=== PATIENT | female | born 1975 | race Caucasian/White ===

== ENCOUNTER 2016-12-16 22:48 | Inpatient (IN) | payer OTHER ==
[~2016-12-16] VITALS: Ht 152.4 cm; Wt 70.0 kg
[~2016-12-16 22:48] MED LIST: Erythromycin Base PO; HYDR25TA PO; METO5TAB PO; ONDA4TAB7 PO; PANT40TA3 PO; ZOLP5TAB PO
[2016-12-16 23:30] LABS: BASO % 0 % (0-3); EOS % 0 % (0-3); HEMATOCRIT 40.8 % (36.0-47.0); HEMOGLOBIN 14.3 g/dL (12.0-15.5); LYMPH % 9 % (24-48); MEAN CORPUSCULAR HEMOGLOBIN 31 pg (25-35); MEAN CORPUSCULAR HGB CONC 35 g/dL (31-37); MEAN CORPUSCULAR VOLUME 87 fL (79-100); MONO % 6 % (0-9); NEUT % 85 % (31-73); PLATELET COUNT 241 x10^3/uL (140-400); RED BLOOD COUNT 4.68 x10^6/uL (3.50-5.40); RED CELL DISTRIBUTION WIDTH 13.3 % (11.5-14.5); WHITE BLOOD COUNT 10.8 x10^3/uL (4.0-11.0)
--- NOTE | 2016-12-16 23:33 | PHYS DOC ---
Past Medical History Past Medical History: DVT, Fibromyalgia, GERD, Migraines, Ovarian Cyst, Pneumonia, Other Additional Past Medical Histor: PITUITARY ADNOMA, POST CARDIOMYOPATHY, GASTROPARESIS Past Surgical History: Appendectomy, Cholecystectomy, Tonsillectomy, Other Additional Past Surgical Histo: ADNOIDECTOMY, Alcohol Use: Rarely Drug Use: None Adult General Chief Complaint Chief Complaint: ABDOMINAL PAIN HPI HPI Patient is a 41 year old nail presents emergency department stating that she has a history of gastroparesis. She states she was diagnosed with this back in 2013. Patient presents today stating that she's been having some upper abdominal pain and discomfort for the last 6 weeks in which she's been seen her primary care physician for. Patient states she takes Zofran at home and has been taking 8 mg of Zofran every 4 hours to help with her nausea vomiting. Patient states that she has been vomiting for the last 7 days. She states she's been unable to keep anything down. Patient states that she has vomiting up bile with no blood noted. She states she originally started with some diarrhea although that has subsided now. She is complaining of upper abdominal pain and generalized abdominal pain as well. She takes Protonix at home and states that she believes that she threw the Protonix up today. She denies any fever but does state that she's had some chills at home. Patient states that she has noticed that her abdominal pain and discomfort with nausea and vomiting becomes worse when she is under a lot of stress. She states that her son has recently been diagnosed with bipolar and she believes that this is part of the cause. She also believes that she has a autoimmune deficiency which causes her to have the discomfort. 0243: This is a 41-year-old female with a history significant for an appendectomy and a cholecystectomy and gastroparesis who presents to the ER today secondary to abdominal pain nausea and vomiting. Patient has tenderness in the midepigastric area. Patient has diminished bowel sounds. Patient has no rebound or guarding. Patient present with any signs or symptoms of be consistent with an acute surgical abdomen at this time. Patient had a CT scan of the abdomen and pelvis with by mouth and IV contrast which revealed a small bowel obstruction at the proximal. Patient will need to be admitted to the hospital for further evaluation. We will consult surgery. NG tube is being placed to decompress the stomach and to assist with pain. Clinically and hemodynamically stable for admission at this time. Plan was discussed with the patient and family and they're in complete agreement with the plan to admit the patient for further workup in the hospital. Review of Systems Review of Systems Constitutional: Denies fever or chills [] Eyes: Denies change in visual acuity, redness, or eye pain [] HENT: Denies nasal congestion or sore throat [] Respiratory: Denies cough or shortness of breath [] Cardiovascular: No additional information not addressed in HPI [] GI: abdominal pain, nausea, vomiting, denies bloody stools or diarrhea [] : Denies dysuria or hematuria [] Musculoskeletal: Denies back pain or joint pain [] Integument: Denies rash or skin lesions [] Neurologic: Denies headache, focal weakness or sensory changes [] Endocrine: Denies polyuria or polydipsia [] Current Medications Current Medications Current Medications Medications (Trade) Dose Ordered Sig/Olya Start Time Stop Time Status Last Admin Dose Admin Fentanyl Citrate (Fentanyl 2ml Vial) 50 mcg PRN Q2HR PRN 12/17/16 02:15 12/18/16 02:14 UNV Hydromorphone HCl (Dilaudid) 1 mg 1X ONCE 12/17/16 02:15 12/17/16 02:16 UNV 12/17/16 02:33 1 MG Info (Do NOT chart on this entry -- for MONITORING) 1 each PRN DAILY PRN 12/17/16 00:45 12/19/16 00:44 Iohexol (Omnipaque 240 Mg/ml) 30 ml 1X ONCE 12/17/16 00:45 12/17/16 00:46 DC 12/17/16 01:34 30 ML Iohexol (Omnipaque 300 Mg/ml) 75 ml 1X ONCE 12/17/16 00:45 12/17/16 00:46 DC 12/17/16 01:34 75 ML Lidocaine HCl (Glydo (Lidocaine) Jelly) 6 celio STK-MED ONCE 12/17/16 02:22 12/17/16 02:23 DC Lidocaine HCl (Viscous Lidocaine) 15 ml 1X ONCE 12/17/16 02:15 12/17/16 02:16 UNV Ondansetron HCl (Zofran) 4 mg 1X ONCE 12/17/16 02:15 12/17/16 02:16 UNV 12/17/16 02:30 4 MG Pantoprazole Sodium (Protonix Vial) 40 mg 1X ONCE 12/16/16 23:45 12/16/16 23:46 DC 12/16/16 23:45 40 MG Promethazine HCl (Phenergan Im) 25 mg 1X ONCE 12/16/16 23:45 12/16/16 23:46 DC 12/16/16 23:56 25 MG Sodium Chloride 1,000 ml @ 125 mls/hr Q8H 12/17/16 02:12 12/18/16 02:11 UNV 12/17/16 02:27 125 MLS/HR Allergies Allergies Allergies Coded Allergies Type Severity Reaction Last Updated Verified morphine Adverse Reaction Intermediate SEVERE ITCHING 02/12/16 Yes Physical Exam Physical Exam Constitutional: Well developed, well nourished, no acute distress, non-toxic appearance. [] HENT: Normocephalic, atraumatic, bilateral external ears normal, oropharynx moist, no oral exudates, nose normal. [] Eyes: PERRLA, EOMI, conjunctiva normal, no discharge. [] Neck: Normal range of motion, no tenderness, supple, no stridor. [] Cardiovascular:Heart rate regular rhythm, no murmur [] Lungs & Thorax: Bilateral breath sounds clear to auscultation [] Abdomen: Bowel sounds hypoactive, soft, upper abdominal tenderness, no masses, no pulsatile masses. [] Skin: Warm, dry, no erythema, no rash. [] Back: No tenderness Extremities: No tenderness, no cyanosis, no clubbing, ROM intact, no edema. [] Neurologic: Alert and oriented X 3, normal motor function, normal sensory function, no focal deficits noted. [] Psychologic: Affect normal, judgement normal, mood normal. [] Current Patient Data Vital Signs Vital Signs Date Time Temp Pulse Resp B/P (MAP) Pulse Ox O2 Delivery O2 Flow Rate FiO2 12/17/16 02:33 16 97 12/16/16 23:21 98.0 79 111/69 (83) Room Air 98.0 Lab Values Laboratory Tests Test 12/16/16 22:40 12/16/16 23:13 12/16/16 23:19 POC Urine HCG, Qualitative Hcg negative (Negative) Urine Collection Type Unknown Urine Color Yellow Urine Clarity Clear Urine pH 6.0 Urine Specific [place] >=1.030 Urine Protein Negative mg/dL (NEG-TRACE) Urine Glucose (UA) Negative mg/dL (NEG) Urine Ketones (Stick) Negative mg/dL (NEG) Urine Blood Large (NEG) Urine Nitrite Negative (NEG) Urine Bilirubin Negative (NEG) Urine Urobilinogen Dipstick 0.2 mg/dL (0.2 mg/dL) Urine Leukocyte Esterase Small (NEG) Urine RBC 11-20 /HPF (0-2) Urine WBC 5-10 /HPF (0-4) Urine Squamous Epithelial Cells Mod /LPF Urine Amorphous Sediment Present /HPF Urine Bacteria Few /HPF (0-FEW) Urine Mucus Mod /LPF Urine Yeast Present /HPF White Blood Count 10.8 x10^3/uL (4.0-11.0) Red Blood Count 4.68 x10^6/uL (3.50-5.40) Hemoglobin 14.3 g/dL (12.0-15.5) Hematocrit 40.8 % (36.0-47.0) Mean Corpuscular Volume 87 fL (79-100) Mean Corpuscular Hemoglobin 31 pg (25-35) Mean Corpuscular Hemoglobin Concent 35 g/dL (31-37) Red Cell Distribution Width 13.3 % (11.5-14.5) Platelet Count 241 x10^3/uL (140-400) Neutrophils (%) (Auto) 85 % (31-73) H Lymphocytes (%) (Auto) 9 % (24-48) L Monocytes (%) (Auto) 6 % (0-9) Eosinophils (%) (Auto) 0 % (0-3) Basophils (%) (Auto) 0 % (0-3) Neutrophils # (Auto) 9.2 x10^3uL (1.8-7.7) H Lymphocytes # (Auto) 1.0 x10^3/uL (1.0-4.8) Monocytes # (Auto) 0.6 x10^3/uL (0.0-1.1) Eosinophils # (Auto) 0.0 x10^3/uL (0.0-0.7) Basophils # (Auto) 0.0 x10^3/uL (0.0-0.2) Segmented Neutrophils % 80 % (35-66) H Lymphocytes % 14 % (24-48) L Monocytes % 6 % (0-10) Platelet Estimate Adequate (ADEQUATE) Sodium Level 139 mmol/L (136-145) Potassium Level 4.0 mmol/L (3.5-5.1) Chloride Level 103 mmol/L (98-107) Carbon Dioxide Level 26 mmol/L (21-32) Anion Gap 10 (6-14) Blood Urea Nitrogen 17 mg/dL (7-20) Creatinine 0.8 mg/dL (0.6-1.0) Estimated GFR (Cockcroft-Gault) 78.7 BUN/Creatinine Ratio 21 (6-20) H Glucose Level 129 mg/dL (70-99) H Calcium Level 8.6 mg/dL (8.5-10.1) Total Bilirubin 0.3 mg/dL (0.2-1.0) Aspartate Amino Transferase (AST) 28 U/L (15-37) Alanine Aminotransferase (ALT) 38 U/L (14-59) Alkaline Phosphatase 52 U/L (46-116) Total Protein 7.5 g/dL (6.4-8.2) Albumin 4.0 g/dL (3.4-5.0) Albumin/Globulin Ratio 1.1 (1.0-1.7) Amylase Level 30 U/L (25-115) Lipase 235 U/L (73-393) Laboratory Tests 12/16/16 23:19 Laboratory Tests 12/16/16 23:19 EKG EKG [] Radiology/Procedures Radiology/Procedures [] Course & Med Decision Making Course & Med Decision Making Pertinent Labs and Imaging studies reviewed. (See chart for details) Patient's urine is positive for large amount of blood. Patient does state that she is currently on her menstrual cycle which is day 3. 0057 Patient continues to have pain and discomfort with Fentanyl ordered as needed. Patient continues to have nausea feeling, zofran ordered. [address] Naqvi with CT scan pending. Labs appear to be normal. [] Dragon Disclaimer Dragon Disclaimer This electronic medical record was generated, in whole or in part, using a voice recognition dictation system. Departure Departure Impression: Primary Impression: Gastroparesis Additional Impression: Small bowel obstruction Disposition: 09 ADMITTED INPATIENT Admitting Physician: Other (reusch) Condition: GUARDED Referrals: CHE ZALDIVAR MD (PCP) Problem Qualifiers YONG GENTILE APRN December 16, 2016 23:33 NORMAN NAQVI MD December 17, 2016 02:46
[2016-12-16 23:38] LABS: CALCIUM 8.6 mg/dL (8.5-10.1); CREATININE 0.8 mg/dL (0.6-1.0); GFR 78.7
[2016-12-16 23:39] LABS: BILIRUBIN,URINE NEGATIVE (NEG); GLUCOSE,URINE NEGATIVE (NEG); NITRITE,URINE NEGATIVE (NEG); PROTEIN,URINE NEGATIVE (NEG-TRACE); UROBILINOGEN,URINE 0.2 mg/dL (0.2 mg/dL)
[2016-12-16 23:44] LABS: BACTERIA,URINE FEW /HPF (0-FEW); SQUAMOUS EPITHELIAL CELL,UR MOD /LPF
[2016-12-16 23:44] LABS: ALBUMIN/GLOBULIN RATIO 1.1 (1.0-1.7); AMYLASE 30 U/L (25-115); TOTAL BILIRUBIN 0.3 mg/dL (0.2-1.0); TOTAL PROTEIN 7.5 g/dL (6.4-8.2)
[2016-12-16 23:45] LABS: YEAST,URINE PRESENT /HPF
[2016-12-16] MEDS ORDERED: IV NORMAL SALINE 1000ML BAG 1,000 ML IV ONE (23:45)
[2016-12-16] MEDS ORDERED: PANTOPRAZOLE IV PUSH 40 MG VIAL. IVP ONE (23:45)
[2016-12-16] MEDS ORDERED: PROMETHAZINE IM 25 MG/ML VIAL IM ONE (23:45)
[2016-12-16] MEDS: fentaNYL PF VIAL 100 MCG/2 ML VIAL IV PRN (23:59)
[2016-12-17] LABS: PLT ESTIMATE ADEQUATE (ADEQUATE)
[2016-12-17] MEDS ORDERED: CONTRAST GIVEN MC PRN (00:45)
[2016-12-17] MEDS ORDERED: IOHEXOL 300 MG/ML 75 ML VIAL IV ONE (00:45)
[2016-12-17] MEDS ORDERED: IOHEXOL 240 MG/ML 50ML VIAL. PO ONE (00:45)
[2016-12-17] MEDS: fentaNYL PF VIAL 100 MCG/2 ML VIAL IV PRN ×6 (00:53→22:00)
[2016-12-17] MEDS ORDERED: ONDANSETRON PF 4 MG/2 ML VIAL. IV ONE ×2 (01:00→02:15)
--- NOTE | 2016-12-17 02:01 | RAD ---
PROCEDURE CT abdomen and pelvis with contrast. HISTORY Abdominal pain. TECHNIQUE Helical CT imaging of the abdomen and pelvis performed after oral contrast and 75 cc Omnipaque 300 IV contrast. PQRS: One or more the following individualized dose reduction techniques were utilized for the study: 1. Automated exposure control. 2. Adjustment of the mA and/or kV according to patient size. 3. Use of iterative reconstruction technique. COMPARISON CT abdomen pelvis without contrast, May 12, 2015. FINDINGS Mild bilateral dependent atelectasis. Cardiac size normal. Cholecystectomy. Mild splenomegaly, craniocaudal dimension 14 centimeters. The liver, pancreas, right adrenal gland, and abdominal aortic caliber are normal. Stable nodularity of the left adrenal gland. There is no hydronephrosis. Kidneys enhance symmetrically. The stomach is distended with oral contrast. The duodenum and jejunum are dilated. There is small bowel feces sign, image 59. The small bowel at the point of transition is mildly thickened, for example coronal image 26. There is moderate colon stool volume. No evidence of colitis. No secondary signs of appendicitis. The distal small bowel is decompressed. Anteverted uterus. Mild pelvic free fluid. Urinary bladder is normal. No acute bone abnormality. IMPRESSION 1. Proximal to mid small bowel obstruction. Small bowel at the point of transition is mildly thickened, cannot exclude focal enteritis. 2. Mild splenomegaly. 3. Mild pelvic free fluid. Electronically signed by: Preston Barfield MD (December 17, 2016 01:59:32)
[2016-12-17] MEDS ORDERED: ONDANSETRON PF 4 MG/2 ML VIAL. IV PRN ×3 (02:15→22:15)
[2016-12-17] MEDS ORDERED: HYDROmorphone 2 MG/ML VIAL IV ONE (02:15)
[2016-12-17] MEDS ORDERED: LIDOCAINE 2% VISCOUS 15 ML SOLUTION. SWSW ONE (02:15)
[2016-12-17] MEDS ORDERED: LIDOCAINE 2% JELLY 6ML IN APPLICATOR. ONE (02:22)
[2016-12-17] MEDS: IV NORMAL SALINE 1000ML BAG 1,000 ML IV SCH ×5 (02:27→21:30)
[2016-12-17 03:15] VITALS: BP 86/47
--- NOTE | 2016-12-17 03:18 | ACF ---
Admission Forms Criteria ABDOMINAL PAIN Clinical Indications for Admission to Inpatient Care (Place 'X' for any and all applicable criteria): Admission is indicated for ANY ONE of the following(1)(2)(3)(4)(5): [X]I. Inpatient admission required rather than observation care (Also use Abdominal Pain: Observation Care, as appropriate) because of ANY ONE of the following: [ ]a) Severe pain requiring acute inpatient management [ ]b) Identification of etiology/finding that requires inpatient care (eg, aortic dissection, free air) [ ]c) Absent bowel sounds with complete ileus(6) [ ]d) Suspected toxic megacolon [ ]e) Severe electrolyte abnormalities requiring inpatient care [ ]f) High fever or infection requiring inpatient admission as indicated by ANY ONE of following(7)(8): [ ] i) Appropriate outpatient or observational care antimicrobial treatment unavailable, not effective, or not feasible [ ] ii) Documented bacteremia [ ] iii) Temperature > 104.9 degrees F (oral) [ ] iv) T >103.1 F (oral) or < 96.8 F(rectal) that does not respond to all emergency treatment measures [X]g) Signs of intestinal obstruction [B] [ ]h) Hemodynamic instability [ ]i) IV fluid to replace significant ongoing losses (greater than 3 L/m2 per day) (12)(13) [ ]j) Percutaneous or open drainage (eg, abscess, biliary tract ) procedures [ ]k) Parenteral nutrition regimen that must be implemented on inpatient basis [ ]l) Other condition,treatment or monitoring requiring inpatient admission. [ ]II. Peritoneal signs present [ ]III. Surgery needed that cannot be performed on an ambulatory basis. [ ]IV. Evaluation requires patient to not eat or drink for extended period ( eg, more than 24 hours). [ ]V. Contraindications and/or Inappropriate clinical situations for Observational Care in patients with abdominal pain, when ANY ONE of the following is required: [ ]a) Thorough evaluation is required to prevent catastrophic events due to delays in diagnosing (e.g.Mesenteric ischemia) 1,3 [ ]b) Patient with severe pathology or with chronic symptoms unlikely to improve in the ED stay (3) [ ]. General contraindications and/or Inappropriate clinical situations for Observational Care in patients with abdominal pain, when ANY ONE of the following is required: [ ]a) Prediction of prolongation of LOS based on ANY ONE of the following may be considered as a contraindication for observational care 2, 3, 4, 5, 6, 7, 8, 9, 10, 11 [ ]i) Age > 65 yrs. [ ]ii) Patient arriving by ambulance [ ]iii) Patient with high acuity [ ]iv) Patient requiring vital sign monitoring [ ]v) Patient on IV medication [ ]b) Systolic blood pressures 180mmHg 3,12 [ ]c) Patient with altered mental status including delirium and other alteration of consciousness, (3) [ ]d) Patient whose discharge disposition will be to a senior care home or rehabilitation home should not be managed in Emergency Department Observation Unit. CMS rule requires 3 days hospital stay before such placement.3,13 [ ]e) Patient with failure to thrive due to broad array of etiologies 3,16,17 [ ]f) Inability to ambulate 3,14 Extended stay beyond goal length of stay may be needed for(2)(3): [ ]a) Persistent abdominal pain with suspected intra-abdominal process [ ]b) Diagnosed condition requiring continued stay (e.g., pancreatitis, complicated diverticulitis) [ ]c) Surgery (e.g., colectomy) The original [facility] content created by [employer] has been revised. The portions of the content which have been revised are identified through the use of italic text or in bold, and [facility] has neither reviewed nor approved the modified material.All other unmodified content is copyright [employer]. Please see references footnoted in the original [facility] edition 2016 Admission Criteria Met?: Yes CALVIN WOODS December 17, 2016 03:18
[2016-12-17] MEDS ORDERED: CLON0.1T PO (04:41)
[2016-12-17] MEDS ORDERED: CYCL10TA2 PO (04:41)
[2016-12-17] MEDS ORDERED: PANT40TA5 PO (04:41)
[2016-12-17] MEDS ORDERED: LORA1TAB PO (04:41)
[2016-12-17] MEDS ORDERED: ZOLP10TA4 PO (04:41)
[2016-12-17] MEDS ORDERED: DEXT20CA7 PO (04:41)
[2016-12-17] MEDS ORDERED: CLON1TAB3 PO (04:41)
[2016-12-17] MEDS ORDERED: ONDA4TAB7 PO (04:41)
[2016-12-17] MEDS ORDERED: SERT50TA8 PO (04:41)
[2016-12-17] MEDS ORDERED: METO10TA81 PO (04:41)
[2016-12-17 07:00] VITALS: BP 93/36
--- NOTE | 2016-12-17 07:45 | RAD ---
Indication: NG tube placement. Time of exam 0309 hours. The NG tube has the tip just beyond the GE junction. The proximal side-port is located within the distal esophagus. NG tube should be advanced. No free air is identified. Moderate gaseous distention of small bowel loops in the central abdomen are noted. Impression: NG tube placement, as described.
--- NOTE | 2016-12-17 09:41 | PDOC2 ---
GI CONSULT Reason For Consult: SBO, abd pain, gastroparesis HPI: HPI: 41 y/o female evaluated in ER for abd pain and vomiting. CT showed SBO and NG tube was placed. F/u KUB showed need for NG advancement. Previous GI workup in 05/2014: EGD: gastritis. Colonoscopy: internal hemorrhoids. GES: markedly delayed gastric emptying, T1/2 400 min. Returned to room after NG advancement. Has not had imaging to confirm placement yet, but feeling better, tube suctioning significant amount of brown liquid into canister, no longer vomiting, pt appears much more calm. Has not felt well for a couple weeks w/ abd pain, vomiting, and varying bowel habits (liquid stool/incontinence and constipation improved w/ Miralax and Dulcolax). Last BM on 12/15 (small). Chronic nausea. Takes Zofran Q 4 hrs typically at home. Also uses Reglan PRN and PPI QD. Asks for something more for nausea now. Pain is still bothersome from epigastrium to suprapubic region. Has significant anxiety, would like home meds restarted. Feels a "choking" sensation w/ NG. PMH: PMH: gastroparesis, GERD, IBS, cardiomyopathy, DVT, fibromyalgia, depression, anxiety , appendectomy, cholecystectomy, GERA, removal of ovarian cyst x 2, tonsillectomy FH: Family History: No pertinent hx Social History: Smoke: No Drugs: None ROS: GEN: +chills HEENT: Denies blurred vision, sore throat CV: Denies chest pain RESP: Denies shortness of air, cough GI: Per HPI : Denies hematuria, dysuria ENDO: Denies weight changes NEURO: Denies confusion, dizziness MSK: Denies weakness, joint pain/swelling SKIN: Denies jaundice, pruritus Vitals: Vitals: Vital Signs Date Time Temp Pulse Resp B/P (MAP) Pulse Ox O2 Delivery O2 Flow Rate FiO2 12/17/16 07:00 97.7 74 16 93/36 (55) 98 Room Air 97.7 Labs: Labs: Laboratory Tests Test 12/16/16 22:40 12/16/16 23:13 12/16/16 23:19 Bedside Urine HCG, Qualitative Hcg negative (Negative) Urine Collection Type Unknown Urine Color Yellow Urine Clarity Clear Urine pH 6.0 Urine Specific [place] >=1.030 Urine Protein Negative mg/dL (NEG-TRACE) Urine Glucose (UA) Negative mg/dL (NEG) Urine Ketones (Stick) Negative mg/dL (NEG) Urine Blood Large (NEG) Urine Nitrite Negative (NEG) Urine Bilirubin Negative (NEG) Urine Urobilinogen Dipstick 0.2 mg/dL (0.2 mg/dL) Urine Leukocyte Esterase Small (NEG) Urine RBC 11-20 /HPF (0-2) Urine WBC 5-10 /HPF (0-4) Urine Squamous Epithelial Cells Mod /LPF Urine Amorphous Sediment Present /HPF Urine Bacteria Few /HPF (0-FEW) Urine Mucus Mod /LPF Urine Yeast Present /HPF White Blood Count 10.8 x10^3/uL (4.0-11.0) Red Blood Count 4.68 x10^6/uL (3.50-5.40) Hemoglobin 14.3 g/dL (12.0-15.5) Hematocrit 40.8 % (36.0-47.0) Mean Corpuscular Volume 87 fL (79-100) Mean Corpuscular Hemoglobin 31 pg (25-35) Mean Corpuscular Hemoglobin Concent 35 g/dL (31-37) Red Cell Distribution Width 13.3 % (11.5-14.5) Platelet Count 241 x10^3/uL (140-400) Neutrophils (%) (Auto) 85 % (31-73) Lymphocytes (%) (Auto) 9 % (24-48) Monocytes (%) (Auto) 6 % (0-9) Eosinophils (%) (Auto) 0 % (0-3) Basophils (%) (Auto) 0 % (0-3) Neutrophils # (Auto) 9.2 x10^3uL (1.8-7.7) Lymphocytes # (Auto) 1.0 x10^3/uL (1.0-4.8) Monocytes # (Auto) 0.6 x10^3/uL (0.0-1.1) Eosinophils # (Auto) 0.0 x10^3/uL (0.0-0.7) Basophils # (Auto) 0.0 x10^3/uL (0.0-0.2) Segmented Neutrophils % 80 % (35-66) Lymphocytes % 14 % (24-48) Monocytes % 6 % (0-10) Platelet Estimate Adequate (ADEQUATE) Sodium Level 139 mmol/L (136-145) Potassium Level 4.0 mmol/L (3.5-5.1) Chloride Level 103 mmol/L (98-107) Carbon Dioxide Level 26 mmol/L (21-32) Anion Gap 10 (6-14) Blood Urea Nitrogen 17 mg/dL (7-20) Creatinine 0.8 mg/dL (0.6-1.0) Estimated GFR (Cockcroft-Gault) 78.7 BUN/Creatinine Ratio 21 (6-20) Glucose Level 129 mg/dL (70-99) Calcium Level 8.6 mg/dL (8.5-10.1) Total Bilirubin 0.3 mg/dL (0.2-1.0) Aspartate Amino Transf (AST/SGOT) 28 U/L (15-37) Alanine Aminotransferase (ALT/SGPT) 38 U/L (14-59) Alkaline Phosphatase 52 U/L (46-116) Total Protein 7.5 g/dL (6.4-8.2) Albumin 4.0 g/dL (3.4-5.0) Albumin/Globulin Ratio 1.1 (1.0-1.7) Amylase Level 30 U/L (25-115) Lipase 235 U/L (73-393) Allergies: Coded Allergies: morphine (Verified Adverse Reaction, Intermediate, SEVERE ITCHING, 02/12/16) Medications: Current Medications Medications (Trade) Dose Ordered Sig/Olya Route PRN Reason Start Time Stop Time Status Last Admin Dose Admin Sodium Chloride 1,000 ml @ 1,000 mls/hr 1X ONCE IV 12/16/16 23:45 12/17/16 00:44 DC 12/16/16 23:54 Promethazine HCl (Phenergan Im) 25 mg 1X ONCE IM 12/16/16 23:45 12/16/16 23:46 DC 12/16/16 23:56 Fentanyl Citrate (Fentanyl 2ml Vial) 50 mcg PRN Q15MIN PRN IV PAIN GREATER THAN 3/10 12/16/16 23:45 12/17/16 23:44 12/17/16 03:59 Pantoprazole Sodium (Protonix Vial) 40 mg 1X ONCE IVP 12/16/16 23:45 12/16/16 23:46 DC 12/16/16 23:45 Iohexol (Omnipaque 240 Mg/ml) 30 ml 1X ONCE PO 12/17/16 00:45 12/17/16 00:46 DC 12/17/16 01:34 Iohexol (Omnipaque 300 Mg/ml) 75 ml 1X ONCE IV 12/17/16 00:45 12/17/16 00:46 DC 12/17/16 01:34 Ondansetron HCl (Zofran) 4 mg 1X ONCE IV 12/17/16 01:00 12/17/16 01:01 DC 12/17/16 01:03 Lidocaine HCl (Viscous Lidocaine) 15 ml 1X ONCE SWSW 12/17/16 02:15 12/17/16 03:45 DC 12/17/16 02:00 Ondansetron HCl (Zofran) 4 mg PRN Q8HRS PRN IV NAUSEA/VOMITING 12/17/16 02:15 12/18/16 02:14 12/17/16 04:59 Sodium Chloride 1,000 ml @ 125 mls/hr Q8H IV 12/17/16 02:12 12/18/16 02:11 12/17/16 02:27 Hydromorphone HCl (Dilaudid) 1 mg 1X ONCE IV 12/17/16 02:15 12/17/16 03:45 DC 12/17/16 02:33 Ondansetron HCl (Zofran) 4 mg 1X ONCE IV 12/17/16 02:15 12/17/16 03:45 DC 12/17/16 02:30 Imaging: Imaging: CT A/P w/ oral and IV contrast 12/16/16 IMPRESSION 1. Proximal to mid small bowel obstruction. Small bowel at the point of transition is mildly thickened, cannot exclude focal enteritis. 2. Mild splenomegaly. 3. Mild pelvic free fluid. KUB 12/17/16 Impression: NG tube placement, as described. PE: GEN: NAD, NG suctioning brown contents (canister nearly full) HEENT: Atraumatic, PERRL LUNGS: CTAB anteriorly HEART: RRR ABD: diffusely uncomfortable EXTREMITY: No edema SKIN: No rashes, no jaundice NEURO/PSYCH: A & O 3, anxious A/P: A/P: SBO -CT as above, surgery consulted -likely 2/2 adhesions w/ previous abd surgeries -has NG Gastroparesis -on Zofran Q 4 hrs at home, Reglan PRN -GES 2013 GERD -on PPI -EGD w/ gastritis 2013 CRC screen -normal colonoscopy (except hemorrhoids) in 2013 Anxiety -per primary -- KUB already ordered to confirm placement. Continue NG, surg consult pending. Add IV PPI and IV Reglan PRN (uses PO at home). BRITTANY [place] December 17, 2016 09:41
[2016-12-17] MEDS: PANTOPRAZOLE IV PUSH 40 MG VIAL. IVP SCH (10:08)
[2016-12-17 11:00] VITALS: BP 102/54
[2016-12-17] MEDS ORDERED: METOCLOPRAMIDE HCL 10 MG/2 ML VIAL. IV PRN (12:30)
--- NOTE | 2016-12-17 12:59 | PDOC1 ---
History and Physical Social History Smoke: No Drugs: None Current Problem List Problem List Problems Medical Problems: (1) Gastroparesis Status: Acute (2) Small bowel obstruction Status: Acute Current Medications Current Medications Current Medications Medications (Trade) Dose Ordered Sig/Olya Start Time Stop Time Status Last Admin Dose Admin Fentanyl Citrate (Fentanyl 2ml Vial) 50 mcg PRN Q2HR PRN 12/17/16 02:15 12/18/16 02:14 12/17/16 10:09 50 MCG Hydromorphone HCl (Dilaudid) 1 mg 1X ONCE 12/17/16 02:15 12/17/16 03:45 DC 12/17/16 02:33 1 MG Info (Do NOT chart on this entry -- for MONITORING) 1 each PRN DAILY PRN 12/17/16 00:45 12/19/16 00:44 Iohexol (Omnipaque 240 Mg/ml) 30 ml 1X ONCE 12/17/16 00:45 12/17/16 00:46 DC 12/17/16 01:34 30 ML Iohexol (Omnipaque 300 Mg/ml) 75 ml 1X ONCE 12/17/16 00:45 12/17/16 00:46 DC 12/17/16 01:34 75 ML Lidocaine HCl (Glydo (Lidocaine) Jelly) 6 celio STK-MED ONCE 12/17/16 02:22 12/17/16 02:23 DC Lidocaine HCl (Viscous Lidocaine) 15 ml 1X ONCE 12/17/16 02:15 12/17/16 03:45 DC 12/17/16 02:00 15 ML Metoclopramide HCl (Reglan) 10 mg PRN Q8HRS PRN 12/17/16 12:30 Ondansetron HCl (Zofran) 4 mg 1X ONCE 12/17/16 02:15 12/17/16 03:45 DC 12/17/16 02:30 4 MG Pantoprazole Sodium (Protonix Vial) 40 mg DAILYAC 12/17/16 10:30 12/17/16 10:08 40 MG Promethazine HCl (Phenergan Im) 25 mg 1X ONCE 12/16/16 23:45 12/16/16 23:46 DC 12/16/16 23:56 25 MG Sodium Chloride 1,000 ml @ 125 mls/hr Q8H 12/17/16 02:12 12/18/16 02:11 12/17/16 11:25 125 MLS/HR Allergies Allergies Allergies Coded Allergies Type Severity Reaction Last Updated Verified morphine Adverse Reaction Intermediate SEVERE ITCHING 02/12/16 Yes ROS Review of System CONSTITUTIONAL: No fever or chills EYES: No recent changes SKIN: No rash or itching CARDIOVASCULAR: No chest pain, syncope, palpitations, or edema RESPIRATORY: No SOB or cough GASTROINTESTINAL: nausea, vomiting or abdominal pain NEUROLOGICAL: No headaches or weakness ENDOCRINE: No cold or heat intolerance GENITOURINARY: No urgency or frequency of urination MUSCULOSKELETAL: No back pain or joint pain LYMPHATICS: No enlarged lymph nodes PSYCHIATRIC: No anxiety or depression Physical Exam Physical Exam GEN.: Alert and oriented. Distress due to pain HEENT: Head is normocephalic, atraumatic NECK: Supple. LUNGS: Clear to auscultation. HEART: RRR, S1, S2 present. Peripheral pulses intact ABDOMEN: Soft, epi tender. decreased BM EXTREMITIES: Without any cyanosis. NEUROLOGIC: Normal speech, normal tone PSYCHIATRIC: Normal affect, normal mood. SKIN: No ulcerations Vitals Vitals Vital Signs Date Time Temp Pulse Resp B/P (MAP) Pulse Ox O2 Delivery O2 Flow Rate FiO2 12/17/16 11:00 97.7 83 18 102/54 (70) 95 97.7 12/17/16 10:40 Room Air Labs Labs Laboratory Tests Test 12/16/16 22:40 12/16/16 23:13 12/16/16 23:19 Bedside Urine HCG, Qualitative Hcg negative (Negative) Urine Collection Type Unknown Urine Color Yellow Urine Clarity Clear Urine pH 6.0 Urine Specific [place] >=1.030 Urine Protein Negative mg/dL (NEG-TRACE) Urine Glucose (UA) Negative mg/dL (NEG) Urine Ketones (Stick) Negative mg/dL (NEG) Urine Blood Large (NEG) Urine Nitrite Negative (NEG) Urine Bilirubin Negative (NEG) Urine Urobilinogen Dipstick 0.2 mg/dL (0.2 mg/dL) Urine Leukocyte Esterase Small (NEG) Urine RBC 11-20 /HPF (0-2) Urine WBC 5-10 /HPF (0-4) Urine Squamous Epithelial Cells Mod /LPF Urine Amorphous Sediment Present /HPF Urine Bacteria Few /HPF (0-FEW) Urine Mucus Mod /LPF Urine Yeast Present /HPF White Blood Count 10.8 x10^3/uL (4.0-11.0) Red Blood Count 4.68 x10^6/uL (3.50-5.40) Hemoglobin 14.3 g/dL (12.0-15.5) Hematocrit 40.8 % (36.0-47.0) Mean Corpuscular Volume 87 fL (79-100) Mean Corpuscular Hemoglobin 31 pg (25-35) Mean Corpuscular Hemoglobin Concent 35 g/dL (31-37) Red Cell Distribution Width 13.3 % (11.5-14.5) Platelet Count 241 x10^3/uL (140-400) Neutrophils (%) (Auto) 85 % (31-73) Lymphocytes (%) (Auto) 9 % (24-48) Monocytes (%) (Auto) 6 % (0-9) Eosinophils (%) (Auto) 0 % (0-3) Basophils (%) (Auto) 0 % (0-3) Neutrophils # (Auto) 9.2 x10^3uL (1.8-7.7) Lymphocytes # (Auto) 1.0 x10^3/uL (1.0-4.8) Monocytes # (Auto) 0.6 x10^3/uL (0.0-1.1) Eosinophils # (Auto) 0.0 x10^3/uL (0.0-0.7) Basophils # (Auto) 0.0 x10^3/uL (0.0-0.2) Segmented Neutrophils % 80 % (35-66) Lymphocytes % 14 % (24-48) Monocytes % 6 % (0-10) Platelet Estimate Adequate (ADEQUATE) Sodium Level 139 mmol/L (136-145) Potassium Level 4.0 mmol/L (3.5-5.1) Chloride Level 103 mmol/L (98-107) Carbon Dioxide Level 26 mmol/L (21-32) Anion Gap 10 (6-14) Blood Urea Nitrogen 17 mg/dL (7-20) Creatinine 0.8 mg/dL (0.6-1.0) Estimated GFR (Cockcroft-Gault) 78.7 BUN/Creatinine Ratio 21 (6-20) Glucose Level 129 mg/dL (70-99) Calcium Level 8.6 mg/dL (8.5-10.1) Total Bilirubin 0.3 mg/dL (0.2-1.0) Aspartate Amino Transf (AST/SGOT) 28 U/L (15-37) Alanine Aminotransferase (ALT/SGPT) 38 U/L (14-59) Alkaline Phosphatase 52 U/L (46-116) Total Protein 7.5 g/dL (6.4-8.2) Albumin 4.0 g/dL (3.4-5.0) Albumin/Globulin Ratio 1.1 (1.0-1.7) Amylase Level 30 U/L (25-115) Lipase 235 U/L (73-393) Laboratory Tests Test 12/16/16 22:40 12/16/16 23:13 12/16/16 23:19 Bedside Urine HCG, Qualitative Hcg negative (Negative) Urine Collection Type Unknown Urine Color Yellow Urine Clarity Clear Urine pH 6.0 Urine Specific [place] >=1.030 Urine Protein Negative mg/dL (NEG-TRACE) Urine Glucose (UA) Negative mg/dL (NEG) Urine Ketones (Stick) Negative mg/dL (NEG) Urine Blood Large (NEG) Urine Nitrite Negative (NEG) Urine Bilirubin Negative (NEG) Urine Urobilinogen Dipstick 0.2 mg/dL (0.2 mg/dL) Urine Leukocyte Esterase Small (NEG) Urine RBC 11-20 /HPF (0-2) Urine WBC 5-10 /HPF (0-4) Urine Squamous Epithelial Cells Mod /LPF Urine Amorphous Sediment Present /HPF Urine Bacteria Few /HPF (0-FEW) Urine Mucus Mod /LPF Urine Yeast Present /HPF White Blood Count 10.8 x10^3/uL (4.0-11.0) Red Blood Count 4.68 x10^6/uL (3.50-5.40) Hemoglobin 14.3 g/dL (12.0-15.5) Hematocrit 40.8 % (36.0-47.0) Mean Corpuscular Volume 87 fL (79-100) Mean Corpuscular Hemoglobin 31 pg (25-35) Mean Corpuscular Hemoglobin Concent 35 g/dL (31-37) Red Cell Distribution Width 13.3 % (11.5-14.5) Platelet Count 241 x10^3/uL (140-400) Neutrophils (%) (Auto) 85 % (31-73) Lymphocytes (%) (Auto) 9 % (24-48) Monocytes (%) (Auto) 6 % (0-9) Eosinophils (%) (Auto) 0 % (0-3) Basophils (%) (Auto) 0 % (0-3) Neutrophils # (Auto) 9.2 x10^3uL (1.8-7.7) Lymphocytes # (Auto) 1.0 x10^3/uL (1.0-4.8) Monocytes # (Auto) 0.6 x10^3/uL (0.0-1.1) Eosinophils # (Auto) 0.0 x10^3/uL (0.0-0.7) Basophils # (Auto) 0.0 x10^3/uL (0.0-0.2) Segmented Neutrophils % 80 % (35-66) Lymphocytes % 14 % (24-48) Monocytes % 6 % (0-10) Platelet Estimate Adequate (ADEQUATE) Sodium Level 139 mmol/L (136-145) Potassium Level 4.0 mmol/L (3.5-5.1) Chloride Level 103 mmol/L (98-107) Carbon Dioxide Level 26 mmol/L (21-32) Anion Gap 10 (6-14) Blood Urea Nitrogen 17 mg/dL (7-20) Creatinine 0.8 mg/dL (0.6-1.0) Estimated GFR (Cockcroft-Gault) 78.7 BUN/Creatinine Ratio 21 (6-20) Glucose Level 129 mg/dL (70-99) Calcium Level 8.6 mg/dL (8.5-10.1) Total Bilirubin 0.3 mg/dL (0.2-1.0) Aspartate Amino Transf (AST/SGOT) 28 U/L (15-37) Alanine Aminotransferase (ALT/SGPT) 38 U/L (14-59) Alkaline Phosphatase 52 U/L (46-116) Total Protein 7.5 g/dL (6.4-8.2) Albumin 4.0 g/dL (3.4-5.0) Albumin/Globulin Ratio 1.1 (1.0-1.7) Amylase Level 30 U/L (25-115) Lipase 235 U/L (73-393) VTE Prophylaxis Ordered VTE Prophylaxis Devices: No VTE Pharmacological Prophylaxi: Yes HERSON CHURCH MD December 17, 2016 12:59
--- NOTE | 2016-12-17 13:28 | RAD ---
Indication: NG tube placement. Time of exam 1313 hours. A supine radiograph of the abdomen demonstrates an NG tube passing below the diaphragm. This has been advanced since the exam earlier the same day. The tip of the NG tube now appears to be within the gastric body. Moderate gaseous distention of mid abdominal small bowel loops are noted. Impression: NG tube advancement, as described.
[2016-12-17 14:59] VITALS: BP 126/64
[2016-12-17] MEDS ORDERED: fentaNYL PF VIAL 100 MCG/2 ML VIAL IV PRN ×5 (15:15→22:15)
[2016-12-17] MEDS ORDERED: METOCLOPRAMIDE HCL 10 MG/2 ML VIAL. IV ONE (15:15)
[2016-12-17 15:18] LABS: CALCIUM 8.5 mg/dL (8.5-10.1); CREATININE 0.8 mg/dL (0.6-1.0); GFR 78.7; POTASSIUM 3.7 mmol/L (3.5-5.1)
--- NOTE | 2016-12-17 16:21 | PDOC ---
SURGICAL PROGRESS NOTE Subjective 41 yo F with abd pain, SBO by imaging abd diffuse TTP, guarding I/R SBO given persistence of pain and emesis despite NGT, favor proceeding with surgical exploration R/B/A d/w pt and pt's family Thanks for consult! [id number] Vital Signs Vital Signs Date Time Temp Pulse Resp B/P (MAP) Pulse Ox O2 Delivery O2 Flow Rate FiO2 12/17/16 14:59 99.0 80 16 126/64 (84) 97 Room Air 99.0 I&O Intake and Output 12/17/16 07:00 Intake Total 0 ml Balance 0 ml Intake Oral 0 ml # Voids 1 Labs Laboratory Tests Test 12/16/16 22:40 12/16/16 23:13 12/16/16 23:19 12/17/16 14:30 Bedside Urine HCG, Qualitative Hcg negative (Negative) Urine Collection Type Unknown Urine Color Yellow Urine Clarity Clear Urine pH 6.0 Urine Specific [place] >=1.030 Urine Protein Negative mg/dL (NEG-TRACE) Urine Glucose (UA) Negative mg/dL (NEG) Urine Ketones (Stick) Negative mg/dL (NEG) Urine Blood Large (NEG) Urine Nitrite Negative (NEG) Urine Bilirubin Negative (NEG) Urine Urobilinogen Dipstick 0.2 mg/dL (0.2 mg/dL) Urine Leukocyte Esterase Small (NEG) Urine RBC 11-20 /HPF (0-2) Urine WBC 5-10 /HPF (0-4) Urine Squamous Epithelial Cells Mod /LPF Urine Amorphous Sediment Present /HPF Urine Bacteria Few /HPF (0-FEW) Urine Mucus Mod /LPF Urine Yeast Present /HPF White Blood Count 10.8 x10^3/uL (4.0-11.0) Red Blood Count 4.68 x10^6/uL (3.50-5.40) Hemoglobin 14.3 g/dL (12.0-15.5) Hematocrit 40.8 % (36.0-47.0) Mean Corpuscular Volume 87 fL (79-100) Mean Corpuscular Hemoglobin 31 pg (25-35) Mean Corpuscular Hemoglobin Concent 35 g/dL (31-37) Red Cell Distribution Width 13.3 % (11.5-14.5) Platelet Count 241 x10^3/uL (140-400) Neutrophils (%) (Auto) 85 % (31-73) Lymphocytes (%) (Auto) 9 % (24-48) Monocytes (%) (Auto) 6 % (0-9) Eosinophils (%) (Auto) 0 % (0-3) Basophils (%) (Auto) 0 % (0-3) Neutrophils # (Auto) 9.2 x10^3uL (1.8-7.7) Lymphocytes # (Auto) 1.0 x10^3/uL (1.0-4.8) Monocytes # (Auto) 0.6 x10^3/uL (0.0-1.1) Eosinophils # (Auto) 0.0 x10^3/uL (0.0-0.7) Basophils # (Auto) 0.0 x10^3/uL (0.0-0.2) Segmented Neutrophils % 80 % (35-66) Lymphocytes % 14 % (24-48) Monocytes % 6 % (0-10) Platelet Estimate Adequate (ADEQUATE) Sodium Level 139 mmol/L (136-145) 140 mmol/L (136-145) Potassium Level 4.0 mmol/L (3.5-5.1) 3.7 mmol/L (3.5-5.1) Chloride Level 103 mmol/L (98-107) 104 mmol/L (98-107) Carbon Dioxide Level 26 mmol/L (21-32) 27 mmol/L (21-32) Anion Gap 10 (6-14) 9 (6-14) Blood Urea Nitrogen 17 mg/dL (7-20) 12 mg/dL (7-20) Creatinine 0.8 mg/dL (0.6-1.0) 0.8 mg/dL (0.6-1.0) Estimated GFR (Cockcroft-Gault) 78.7 78.7 BUN/Creatinine Ratio 21 (6-20) Glucose Level 129 mg/dL (70-99) 99 mg/dL (70-99) Calcium Level 8.6 mg/dL (8.5-10.1) 8.5 mg/dL (8.5-10.1) Total Bilirubin 0.3 mg/dL (0.2-1.0) Aspartate Amino Transf (AST/SGOT) 28 U/L (15-37) Alanine Aminotransferase (ALT/SGPT) 38 U/L (14-59) Alkaline Phosphatase 52 U/L (46-116) Total Protein 7.5 g/dL (6.4-8.2) Albumin 4.0 g/dL (3.4-5.0) Albumin/Globulin Ratio 1.1 (1.0-1.7) Amylase Level 30 U/L (25-115) Lipase 235 U/L (73-393) Lactic Acid Level 2.1 mmol/L (0.4-2.0) Laboratory Tests Test 12/16/16 22:40 12/16/16 23:13 12/16/16 23:19 12/17/16 14:30 Bedside Urine HCG, Qualitative Hcg negative (Negative) Urine Collection Type Unknown Urine Color Yellow Urine Clarity Clear Urine pH 6.0 Urine Specific [place] >=1.030 Urine Protein Negative mg/dL (NEG-TRACE) Urine Glucose (UA) Negative mg/dL (NEG) Urine Ketones (Stick) Negative mg/dL (NEG) Urine Blood Large (NEG) Urine Nitrite Negative (NEG) Urine Bilirubin Negative (NEG) Urine Urobilinogen Dipstick 0.2 mg/dL (0.2 mg/dL) Urine Leukocyte Esterase Small (NEG) Urine RBC 11-20 /HPF (0-2) Urine WBC 5-10 /HPF (0-4) Urine Squamous Epithelial Cells Mod /LPF Urine Amorphous Sediment Present /HPF Urine Bacteria Few /HPF (0-FEW) Urine Mucus Mod /LPF Urine Yeast Present /HPF White Blood Count 10.8 x10^3/uL (4.0-11.0) Red Blood Count 4.68 x10^6/uL (3.50-5.40) Hemoglobin 14.3 g/dL (12.0-15.5) Hematocrit 40.8 % (36.0-47.0) Mean Corpuscular Volume 87 fL (79-100) Mean Corpuscular Hemoglobin 31 pg (25-35) Mean Corpuscular Hemoglobin Concent 35 g/dL (31-37) Red Cell Distribution Width 13.3 % (11.5-14.5) Platelet Count 241 x10^3/uL (140-400) Neutrophils (%) (Auto) 85 % (31-73) Lymphocytes (%) (Auto) 9 % (24-48) Monocytes (%) (Auto) 6 % (0-9) Eosinophils (%) (Auto) 0 % (0-3) Basophils (%) (Auto) 0 % (0-3) Neutrophils # (Auto) 9.2 x10^3uL (1.8-7.7) Lymphocytes # (Auto) 1.0 x10^3/uL (1.0-4.8) Monocytes # (Auto) 0.6 x10^3/uL (0.0-1.1) Eosinophils # (Auto) 0.0 x10^3/uL (0.0-0.7) Basophils # (Auto) 0.0 x10^3/uL (0.0-0.2) Segmented Neutrophils % 80 % (35-66) Lymphocytes % 14 % (24-48) Monocytes % 6 % (0-10) Platelet Estimate Adequate (ADEQUATE) Sodium Level 139 mmol/L (136-145) 140 mmol/L (136-145) Potassium Level 4.0 mmol/L (3.5-5.1) 3.7 mmol/L (3.5-5.1) Chloride Level 103 mmol/L (98-107) 104 mmol/L (98-107) Carbon Dioxide Level 26 mmol/L (21-32) 27 mmol/L (21-32) Anion Gap 10 (6-14) 9 (6-14) Blood Urea Nitrogen 17 mg/dL (7-20) 12 mg/dL (7-20) Creatinine 0.8 mg/dL (0.6-1.0) 0.8 mg/dL (0.6-1.0) Estimated GFR (Cockcroft-Gault) 78.7 78.7 BUN/Creatinine Ratio 21 (6-20) Glucose Level 129 mg/dL (70-99) 99 mg/dL (70-99) Calcium Level 8.6 mg/dL (8.5-10.1) 8.5 mg/dL (8.5-10.1) Total Bilirubin 0.3 mg/dL (0.2-1.0) Aspartate Amino Transf (AST/SGOT) 28 U/L (15-37) Alanine Aminotransferase (ALT/SGPT) 38 U/L (14-59) Alkaline Phosphatase 52 U/L (46-116) Total Protein 7.5 g/dL (6.4-8.2) Albumin 4.0 g/dL (3.4-5.0) Albumin/Globulin Ratio 1.1 (1.0-1.7) Amylase Level 30 U/L (25-115) Lipase 235 U/L (73-393) Lactic Acid Level 2.1 mmol/L (0.4-2.0) Problem List Problems Medical Problems: (1) Gastroparesis Status: Acute (2) Small bowel obstruction Status: Acute Problems: DARIN GARCIA MD December 17, 2016 16:21
[2016-12-17] MEDS ORDERED: IV RINGERS,LACTATED 1000ML 1,000 ML IV SCH (17:46)
[2016-12-17] MEDS ORDERED: LIDOCAINE 1% 1 ML SYRINGE. ID PRN (18:00)
[2016-12-17] MEDS: MIDAZOLAM HCL/PF 2 MG/2 ML VIAL. IV PRN ×2 (18:51→19:37)
[2016-12-17] MEDS ORDERED: ONDANSETRON PF 4 MG/2 ML VIAL. ONE (20:11)
[2016-12-17] MEDS ORDERED: PROPOFOL 20 ML IV ONE (20:11)
[2016-12-17] MEDS ORDERED: LIDOCAINE 2% 100 MG/5 ML SYRINGE. ONE (20:11)
[2016-12-17] MEDS ORDERED: DEXAMETHASONE SOD PHOS 20 MG/5 ML VIAL. ONE (20:11)
[2016-12-17] MEDS ORDERED: fentaNYL PF VIAL 100 MCG/2 ML VIAL ONE (20:12)
[2016-12-17] MEDS ORDERED: MIDAZOLAM HCL/PF 2 MG/2 ML VIAL. ONE ×2 (20:12→21:46)
[2016-12-17] MEDS ORDERED: ROCURONIUM 100 MG/10 ML VIAL. ONE (20:12)
[2016-12-17] MEDS ORDERED: BUPIVAC MPF-EPI 0.5%-1:200000 30 ML VIAL. ONE (20:19)
[2016-12-17] MEDS ORDERED: GLYCOPYRROLATE 1 MG/5 ML VIAL. ONE (21:22)
[2016-12-17] MEDS ORDERED: NEOSTIGMINE METHYLSULFATE 5 MG/5 ML SYRINGE. ONE (21:22)
[2016-12-17] MEDS: IV RINGERS,LACTATED 1000ML 1,000 ML IV SCH (21:30)
[2016-12-17] MEDS ORDERED: 0.9 % SODIUM CHLORIDE 10 ML DISP.SYRIN. IV PRN (21:30)
[2016-12-17] MEDS ORDERED: NALOXONE 0.4 MG/ML VIAL. IV PRN (21:30)
--- NOTE | 2016-12-17 21:40 | PDOC ---
BRIEF OPERATIVE NOTE Pre-Op Diagnosis SBO Post-Op Diagnosis same Procedure Performed Lap exploration Surgeon Brian Anesthesia Type: General, Local Blood Loss 50 Specimens Obtained ascites Findings distended bowel, viable, RIH, garret luke beth adhesions, serosang ascites Complications none Additional Remarks [id number] DARIN GARCIA MD December 17, 2016 21:40
[2016-12-17] MEDS ORDERED: SEVOFLURANE 31 TO 60 MINUTES. IH ONE (22:10)
[2016-12-17 23:00] VITALS: BP 103/57
[2016-12-17] MEDS ORDERED: PROCHLORPERAZINE 10 MG/2 ML VIAL. IV ONE (23:00)
[2016-12-18 02:49] VITALS: BP 108/54
[2016-12-18 04:18] LABS: BASO % 0 % (0-3); EOS % 0 % (0-3); HEMATOCRIT 33.1 % (36.0-47.0); HEMOGLOBIN 11.7 g/dL (12.0-15.5); LYMPH # 0.4 x10^3/uL (1.0-4.8); LYMPH % 7 % (24-48); MEAN CORPUSCULAR HEMOGLOBIN 31 pg (25-35); MEAN CORPUSCULAR HGB CONC 35 g/dL (31-37); MEAN CORPUSCULAR VOLUME 88 fL (79-100); MONO % 3 % (0-9); NEUT % 90 % (31-73); PLATELET COUNT 189 x10^3/uL (140-400); RED BLOOD COUNT 3.77 x10^6/uL (3.50-5.40); RED CELL DISTRIBUTION WIDTH 13.3 % (11.5-14.5); WHITE BLOOD COUNT 5.5 x10^3/uL (4.0-11.0)
[2016-12-18 05:07] LABS: CREATININE 0.5 mg/dL (0.6-1.0); GFR 135.3; POTASSIUM 3.8 mmol/L (3.5-5.1); TOTAL PROTEIN 5.9 g/dL (6.4-8.2)
[2016-12-18] MEDS: IV RINGERS,LACTATED 1000ML 1,000 ML IV SCH ×2 (06:08→17:30)
[2016-12-18 06:12] LABS: PLT ESTIMATE ADEQUATE (ADEQUATE)
[2016-12-18 07:00] VITALS: BP 91/47
[2016-12-18] MEDS: ONDANSETRON PF 4 MG/2 ML VIAL. IV PRN ×2 (09:41→18:18)
[2016-12-18] MEDS: ENOXAPARIN 40 MG/0.4 ML SYRINGE. SQ SCH (09:42)
[2016-12-18] MEDS: PANTOPRAZOLE IV PUSH 40 MG VIAL. IVP SCH (09:42)
--- NOTE | 2016-12-18 09:43 | CONS ---
DATE OF CONSULTATION: 12/17/2016 REFERRING PHYSICIANS: Dr. Ezekiel Gaines, Dr. Jessica Matthews, Dr. Flores, Dr. Salvador Shafer. Thank you for the consult. CHIEF COMPLAINT: Diffuse abdominal pain, nausea, vomiting. DIAGNOSIS: Small-bowel obstruction. PLANNED PROCEDURE: Laparoscopic versus open exploration, possible bowel resection. HISTORY OF PRESENT ILLNESS: This is a 41-year-old female who presents with complaints of diffuse abdominal pain and vomiting late last night, earlier this evening to the Emergency Room. She described diffuse abdominal pain, which has been going on for 6 weeks, but has worsened over the past day. She has had significant nausea and vomiting for the past several days. She subsequently had an NG tube placed and was admitted to the hospital, but she reports having persistent pain, which is worsening and having persistent pain. She is seen in her hospital room accompanied by her supportive family. ALLERGIES: SHE HAS AN ALLERGY TO MORPHINE, WHICH CAUSES SEVERE ITCHING. MEDICATIONS: Include p.r.n. Reglan. She has been on Dilaudid, Protonix. PAST MEDICAL HISTORY: History of DVTs, fibromyalgia, reflux, migraines, ovarian cyst, pneumonia, pituitary adenoma, cardiomyopathy, gastroparesis. PAST SURGICAL HISTORY: Includes appendectomy, cholecystectomy, tonsillectomy, adenoidectomy. SOCIAL HISTORY: No tobacco, no significant alcohol use. FAMILY HISTORY: Noncontributory. REVIEW OF SYSTEMS: All systems reviewed and negative except for HPI. PHYSICAL EXAMINATION: GENERAL: Well-developed female, appearing uncomfortable. VITAL SIGNS: She is afebrile. Vital signs within normal limits. HEENT: Normocephalic, atraumatic. She has an NG tube in place with a significant amount of brownish output. NECK: Supple. Trachea midline. CHEST: Bilateral chest excursion. No chest wall tenderness to palpation. ABDOMEN: Diffusely tender to palpation. No masses. No hernias. There appears to be some guarding. EXTREMITIES: No clubbing, cyanosis or edema. LABORATORY DATA: White blood cell count is 10.8. Glucose 129 on presentation. Liver function tests within normal limits. Amylase and lipase within normal limits. Lactic acid is elevated at 2.1. DIAGNOSTIC DATA: KUB demonstrates an NG tube in the stomach, moderate gaseous distention in small bowel loops. CT scan of her abdomen and pelvis demonstrates proximal to mid small-bowel obstruction, small bowel point of transition is thickened, mild splenomegaly, mild pelvic free fluid. IMPRESSION AND RECOMMENDATIONS: This is a 41-year-old female with small-bowel obstruction. Given her persistence of complaints despite the placement of an NG tube and her concerning abdominal exam, would favor proceeding with surgical intervention versus observation. Discussed risks, benefits and alternatives of this with the patient and the patient's family, risks including, but not limited to bleeding, infection, damage to surrounding structures, risk of anesthesia, risk of an open procedure, risk of bowel resection. The patient and the patient's family appeared to understand and their insightful questions were answered and they agreed to proceed. Thank you for allowing participation in the care of this pleasant patient. DARIN GARCIA MD DR: CARLOS MANUEL/nts JOB#: [id number] / [id number] Dr. ZEN Olson DAVID MD PROPECK, SCOTT MD REUSCH, URSULA MD
--- NOTE | 2016-12-18 09:43 | HP ---
ADMIT DATE: 12/17/2016 CHIEF COMPLAINT: Abdominal pain, gastroparesis. HISTORY OF PRESENT ILLNESS: A 41-year-old female patient presented to the ER with abdominal pain and vomiting for a couple of days. Initial CT abdomen shows small-bowel obstruction and the patient had an NG tube placed and her symptoms are recurrent in nature and she had bloated sensation of the abdomen with epigastric abdominal pain. She is not able to pass gas. She was requiring Zofran periodically; however, the symptom did not improve. She denies any fever, chills or a prior history of major abdominal surgeries. PAST MEDICAL HISTORY: Gastroparesis, GERD, IBS, cardiomyopathy, DVT, fibromyalgia, depression, anxiety, appendectomy, cholecystectomy and removal of ovarian cancer. FAMILY HISTORY: No GI cancers. SOCIAL HISTORY: No smoking, no alcohol, no drug abuse. ALLERGIES: MORPHINE. REVIEW OF SYSTEMS: Please see my electronic H and P. PHYSICAL EXAMINATION: Please see my electronic H and P. LABORATORY DATA: CBC within normal limits. Chemistry within normal limits. Lactic acid 2.1. Urine test negative nitrites, negative leukocyte esterase, ____. IMAGING STUDIES: Abdominal CT showed proximal to mid small-bowel obstruction. Fundus transition is mildly thickened. Mild splenomegaly. ASSESSMENT AND PLAN: 1. Small-bowel obstruction present on admission. 2. Intractable nausea and vomiting and abdominal discomfort due to the above. 3. Dehydration. 4. Severe anxiety. 5. Depression. 6. Fibromyalgia. PLAN: 1. She has been placed on NG tube with intermittent suction. 2. IV hydration. 3. Zofran q. 4 hours as needed for nausea and vomiting. 4. P.r.n. Reglan. 5. IV ____ for anxiety. 6. General Surgery and Gastroenterology has been consulted. If the patient's symptoms are persistent and no symptomatic improvement, possible surgical exploration will be considered. 7. Pain control with IV morphine q. 12 hours as needed. 8. Supportive care. Lovenox for DVT prophylaxis. 9. Prognosis is guarded. KARIN FARLEY MD DR: JASSON/ulises JOB#: [id number] / [id number]
--- NOTE | 2016-12-18 09:43 | OP ---
DATE OF SURGERY: 12/17/2016 REFERRING PHYSICIANS: Dr. Ezekiel Gaines, Dr. Jessica Matthews, Dr. Flores, Dr. Salvador Shafer. Thank you for the consult. PREOPERATIVE DIAGNOSIS: Small-bowel obstruction, concern for surgical abdomen. POSTOPERATIVE DIAGNOSIS: Small-bowel obstruction, concern for surgical abdomen. PROCEDURE: Laparoscopic exploration. SURGEON: Isaac Torres MD ESTIMATED BLOOD LOSS: 50 COMPLICATIONS: None. FINDINGS: Minimal proximal small-bowel distention, brief Fjwb-Whnw-Ghxklx adhesion, small amount of omental adhesions to the periumbilical area. No obvious signs of obstruction or small bowel pathology. Mild erythema of the patches of small bowel, surgically absent gallbladder, surgically absent appendix, normal appearing right colon, transverse colon, descending colon, normal appearing uterus and left ovary, possible small right ovarian cyst, some serosanguineous fluid in the pelvis sent for cytology and analysis, very small right groin hernia. INDICATIONS: This is a 41-year-old female who presents with complaints of abdominal pain, nausea and vomiting and a large amount of NG tube aspirate. Imaging was concerning for possible small-bowel obstruction. The patient was noted to have significant abdominal pain concerning for possible acute surgical abdomen, some elevation of her lactic acid level. Subsequently, it was felt the patient best be served by a laparoscopic versus open exploration. The patient and patient's family were informed of the risks, benefits and alternatives of procedure, risks including, but not limited to bleeding, infection, damage to the surrounding structures, risks of anesthesia, risk of an open procedure, risk of possible bowel resection. The patient and patient's family appeared to understand. Their insightful questions were answered and they agreed to proceed. DESCRIPTION OF PROCEDURE: After obtaining informed consent, the patient was taken to the operating room, induced under general endotracheal anesthetic. The patient was prepped and draped in the usual fashion in the anterior abdominal wall. 0.5% Marcaine with epinephrine was injected in the left mid abdomen. An incision was made using a 15 blade scalpel. A 5 mm nonbladed trocar was introduced into the abdominal cavity under direct vision of the laparoscope. Pneumoperitoneum was established. Additional 5 mm port was placed in the left upper quadrant under direct laparoscopic guidance. The abdominal cavity was explored. There was a small Nnav-Qxzz-Kjhvvs adhesion above the liver. This was divided using EndoShears. The liver was grossly normal in appearance. The gallbladder was surgically absent without evidence of complication. The stomach was noted to be normal in appearance. The NG tube was seen in the stomach. The small bowel was run from the ligament of Treitz to the terminal ileum. There was found to be no obvious pathology of it. There was some mild erythema of the small bowel. Fairly minimal amounts of peristalsis were noted. There was some proximal dilatation of the small bowel, but no obvious transition point was identified. There was no bowel compromise at any point. The appendix was surgically absent. The right colon was normal in appearance. The transverse colon was normal in appearance. The descending colon was normal in appearance. There was some serosanguineous ascites in the deep pelvis. This was sampled and sent to pathology. The uterus was normal in appearance. The left ovary was normal in appearance. The right ovary had a very small serous cyst, less than a centimeter in diameter. There was a very small right inguinal hernia, but certainly contained no viscera. There were some omental adhesions to the periumbilical area and an old stitch was identified, but no evidence of hernia. The omental adhesion was taken down using blunt dissection. Subsequently, there was no additional pathology identified. The procedure was abandoned. All ports removed under direct vision of the laparoscope. There was no evidence of port site bleeding. All skin incisions were reapproximated using multiple interrupted 4-0 Monocryl in a subcuticular fashion. Sterile dressing was placed over all wounds. The patient tolerated the procedure well and was discharged to the recovery room in stable condition. All counts were correct. There were no immediate complications. We will monitor the patient, continue with the NG tube and repeat x-rays tomorrow. Suspect that this may have been a component of gastroenteritis and ideally will resolve on its own, but we will continue to monitor the patient carefully and await ascites evaluation. Thank you for allowing participation in the care of this pleasant patient. ISAAC TORRES MD DR: CARLOS MANUEL/ulises JOB#: [id number] / [id number] Dr. ZEN Olson DAVID MD PROPECK, SCOTT MD REUSCH, URSULA MD [facility]
--- NOTE | 2016-12-18 09:43 | HP ---
ADMIT DATE: 12/17/2016 CHIEF COMPLAINT: Abdominal pain, gastroparesis. HISTORY OF PRESENT ILLNESS: A 41-year-old female patient presented to the ER with abdominal pain and vomiting for a couple of days. Initial CT abdomen shows small-bowel obstruction and the patient had an NG tube placed and her symptoms are recurrent in nature and she had bloated sensation of the abdomen with epigastric abdominal pain. She is not able to pass gas. She was requiring Zofran periodically; however, the symptom did not improve. She denies any fever, chills or a prior history of major abdominal surgeries. PAST MEDICAL HISTORY: Gastroparesis, GERD, IBS, cardiomyopathy, DVT, fibromyalgia, depression, anxiety, appendectomy, cholecystectomy and removal of ovarian cancer. FAMILY HISTORY: No GI cancers. SOCIAL HISTORY: No smoking, no alcohol, no drug abuse. ALLERGIES: MORPHINE. REVIEW OF SYSTEMS: Please see my electronic H and P. PHYSICAL EXAMINATION: Please see my electronic H and P. LABORATORY DATA: CBC within normal limits. Chemistry within normal limits. Lactic acid 2.1. Urine test negative nitrites, negative leukocyte esterase, ____. IMAGING STUDIES: Abdominal CT showed proximal to mid small-bowel obstruction. Fundus transition is mildly thickened. Mild splenomegaly. ASSESSMENT AND PLAN: 1. Small-bowel obstruction present on admission. 2. Intractable nausea and vomiting and abdominal discomfort due to the above. 3. Dehydration. 4. Severe anxiety. 5. Depression. 6. Fibromyalgia. PLAN: 1. She has been placed on NG tube with intermittent suction. 2. IV hydration. 3. Zofran q. 4 hours as needed for nausea and vomiting. 4. P.r.n. Reglan. 5. IV ativan for anxiety. 6. General Surgery and Gastroenterology has been consulted. If the patient's symptoms are persistent and no symptomatic improvement, possible surgical exploration will be considered. 7. Pain control with IV morphine q. 12 hours as needed. 8. Supportive care. Lovenox for DVT prophylaxis. 9. Prognosis is guarded. HERSON CHURCH MD DR: ROSHAN/ulises JOB#: [id number] / [id number] GLORIA
[2016-12-18 11:00] VITALS: BP 120/61
--- NOTE | 2016-12-18 11:49 | PDOC ---
PROGRESS NOTES Chief Complaint Chief Complaint Abdominal Pain SBO History of Present Illness History of Present Illness Pt was lying in chair with NG tube in place She was s/p laparoscopic exploration d/t to abdominal pain and SBO Reports she is feeling much better and would like the NG tube removed Surgeon was in room and discussed surgical findings and plan to remove NG tube, urinary catheter, and advance diet Vitals Vitals Vital Signs Date Time Temp Pulse Resp B/P (MAP) Pulse Ox O2 Delivery O2 Flow Rate FiO2 12/18/16 11:00 98.1 68 18 120/61 (80) 95 Room Air 98.1 12/17/16 21:51 10 Physical Exam General: Alert, Oriented X3, No acute distress Heart: Regular rate, No murmurs Lungs: Clear, Other (no wheezing) Abdomen: Normal bowel sounds, Soft, No tenderness Extremities: No clubbing, No edema Skin: No rashes, No significant lesion, Other (Surgical incisions are dry, intact, no erythema or streaking) Labs LABS Laboratory Tests Test 12/17/16 14:30 12/18/16 03:22 Sodium Level 140 mmol/L (136-145) 139 mmol/L (136-145) Potassium Level 3.7 mmol/L (3.5-5.1) 3.8 mmol/L (3.5-5.1) Chloride Level 104 mmol/L (98-107) 105 mmol/L (98-107) Carbon Dioxide Level 27 mmol/L (21-32) 24 mmol/L (21-32) Anion Gap 9 (6-14) 10 (6-14) Blood Urea Nitrogen 12 mg/dL (7-20) 8 mg/dL (7-20) Creatinine 0.8 mg/dL (0.6-1.0) 0.5 mg/dL (0.6-1.0) Estimated GFR (Cockcroft-Gault) 78.7 135.3 Glucose Level 99 mg/dL (70-99) 131 mg/dL (70-99) Lactic Acid Level 2.1 mmol/L (0.4-2.0) Calcium Level 8.5 mg/dL (8.5-10.1) 8.0 mg/dL (8.5-10.1) White Blood Count 5.5 x10^3/uL (4.0-11.0) Red Blood Count 3.77 x10^6/uL (3.50-5.40) Hemoglobin 11.7 g/dL (12.0-15.5) Hematocrit 33.1 % (36.0-47.0) Mean Corpuscular Volume 88 fL (79-100) Mean Corpuscular Hemoglobin 31 pg (25-35) Mean Corpuscular Hemoglobin Concent 35 g/dL (31-37) Red Cell Distribution Width 13.3 % (11.5-14.5) Platelet Count 189 x10^3/uL (140-400) Neutrophils (%) (Auto) 90 % (31-73) Lymphocytes (%) (Auto) 7 % (24-48) Monocytes (%) (Auto) 3 % (0-9) Eosinophils (%) (Auto) 0 % (0-3) Basophils (%) (Auto) 0 % (0-3) Neutrophils # (Auto) 5.0 x10^3uL (1.8-7.7) Lymphocytes # (Auto) 0.4 x10^3/uL (1.0-4.8) Monocytes # (Auto) 0.1 x10^3/uL (0.0-1.1) Eosinophils # (Auto) 0.0 x10^3/uL (0.0-0.7) Basophils # (Auto) 0.0 x10^3/uL (0.0-0.2) Segmented Neutrophils % 83 % (35-66) Band Neutrophils % 5 % (0-9) Lymphocytes % 9 % (24-48) Monocytes % 3 % (0-10) Platelet Estimate Adequate (ADEQUATE) BUN/Creatinine Ratio 16 (6-20) Total Bilirubin 1.0 mg/dL (0.2-1.0) Aspartate Amino Transf (AST/SGOT) 39 U/L (15-37) Alanine Aminotransferase (ALT/SGPT) 45 U/L (14-59) Alkaline Phosphatase 45 U/L (46-116) Total Protein 5.9 g/dL (6.4-8.2) Albumin 3.0 g/dL (3.4-5.0) Albumin/Globulin Ratio 1.0 (1.0-1.7) Review of Systems Review of Systems Denies chest pain Denies SOA Denies fever, chills, N/V/D Assessment and Plan Assessmemt and Plan Problems Medical Problems: (1) Gastroparesis Status: Acute (2) Small bowel obstruction Status: Acute ASSESSMENT: 1. Small-bowel obstruction 2. Intractable nausea and vomiting and abdominal discomfort due to the above. 3. Dehydration. 4. Severe anxiety. 5. Depression. 6. Fibromyalgia. PLAN: Surgical findings reviewed w/ surgeon and appreciated: FINDINGS: Minimal proximal small-bowel distention, brief Cxfy-Gxvv-Imeqpi adhesion, small amount of omental adhesions to the periumbilical area. No obvious signs of obstruction or small bowel pathology. Mild erythema of the patches of small bowel, surgically absent gallbladder, surgically absent appendix, normal appearing right colon, transverse colon, descending colon, normal appearing uterus and left ovary, possible small right ovarian cyst, some serosanguineous fluid in the pelvis sent for cytology and analysis, very small right groin hernia. D/C NG tube D/C urinary cath Advance diet and if tolerated, possible d/c to home tomorrow am Continue IV hydration Zofran q. 4 hours as needed for nausea and vomiting. Ativan for anxiety Pain control w/ hydromorphone prn Protonix for GI prophylaxis Lovenox for DVT prophylaxis Problems: Comment Review of Relevant I have reviewed the following items sarita (where applicable) has been applied. Labs Laboratory Tests Test 12/16/16 22:40 12/16/16 23:13 12/16/16 23:19 12/17/16 14:30 Bedside Urine HCG, Qualitative Hcg negative (Negative) Urine Collection Type Unknown Urine Color Yellow Urine Clarity Clear Urine pH 6.0 Urine Specific [place] >=1.030 Urine Protein Negative mg/dL (NEG-TRACE) Urine Glucose (UA) Negative mg/dL (NEG) Urine Ketones (Stick) Negative mg/dL (NEG) Urine Blood Large (NEG) Urine Nitrite Negative (NEG) Urine Bilirubin Negative (NEG) Urine Urobilinogen Dipstick 0.2 mg/dL (0.2 mg/dL) Urine Leukocyte Esterase Small (NEG) Urine RBC 11-20 /HPF (0-2) Urine WBC 5-10 /HPF (0-4) Urine Squamous Epithelial Cells Mod /LPF Urine Amorphous Sediment Present /HPF Urine Bacteria Few /HPF (0-FEW) Urine Mucus Mod /LPF Urine Yeast Present /HPF White Blood Count 10.8 x10^3/uL (4.0-11.0) Red Blood Count 4.68 x10^6/uL (3.50-5.40) Hemoglobin 14.3 g/dL (12.0-15.5) Hematocrit 40.8 % (36.0-47.0) Mean Corpuscular Volume 87 fL (79-100) Mean Corpuscular Hemoglobin 31 pg (25-35) Mean Corpuscular Hemoglobin Concent 35 g/dL (31-37) Red Cell Distribution Width 13.3 % (11.5-14.5) Platelet Count 241 x10^3/uL (140-400) Neutrophils (%) (Auto) 85 % (31-73) Lymphocytes (%) (Auto) 9 % (24-48) Monocytes (%) (Auto) 6 % (0-9) Eosinophils (%) (Auto) 0 % (0-3) Basophils (%) (Auto) 0 % (0-3) Neutrophils # (Auto) 9.2 x10^3uL (1.8-7.7) Lymphocytes # (Auto) 1.0 x10^3/uL (1.0-4.8) Monocytes # (Auto) 0.6 x10^3/uL (0.0-1.1) Eosinophils # (Auto) 0.0 x10^3/uL (0.0-0.7) Basophils # (Auto) 0.0 x10^3/uL (0.0-0.2) Segmented Neutrophils % 80 % (35-66) Lymphocytes % 14 % (24-48) Monocytes % 6 % (0-10) Platelet Estimate Adequate (ADEQUATE) Sodium Level 139 mmol/L (136-145) 140 mmol/L (136-145) Potassium Level 4.0 mmol/L (3.5-5.1) 3.7 mmol/L (3.5-5.1) Chloride Level 103 mmol/L (98-107) 104 mmol/L (98-107) Carbon Dioxide Level 26 mmol/L (21-32) 27 mmol/L (21-32) Anion Gap 10 (6-14) 9 (6-14) Blood Urea Nitrogen 17 mg/dL (7-20) 12 mg/dL (7-20) Creatinine 0.8 mg/dL (0.6-1.0) 0.8 mg/dL (0.6-1.0) Estimated GFR (Cockcroft-Gault) 78.7 78.7 BUN/Creatinine Ratio 21 (6-20) Glucose Level 129 mg/dL (70-99) 99 mg/dL (70-99) Calcium Level 8.6 mg/dL (8.5-10.1) 8.5 mg/dL (8.5-10.1) Total Bilirubin 0.3 mg/dL (0.2-1.0) Aspartate Amino Transf (AST/SGOT) 28 U/L (15-37) Alanine Aminotransferase (ALT/SGPT) 38 U/L (14-59) Alkaline Phosphatase 52 U/L (46-116) Total Protein 7.5 g/dL (6.4-8.2) Albumin 4.0 g/dL (3.4-5.0) Albumin/Globulin Ratio 1.1 (1.0-1.7) Amylase Level 30 U/L (25-115) Lipase 235 U/L (73-393) Lactic Acid Level 2.1 mmol/L (0.4-2.0) Test 12/18/16 03:22 White Blood Count 5.5 x10^3/uL (4.0-11.0) Red Blood Count 3.77 x10^6/uL (3.50-5.40) Hemoglobin 11.7 g/dL (12.0-15.5) Hematocrit 33.1 % (36.0-47.0) Mean Corpuscular Volume 88 fL (79-100) Mean Corpuscular Hemoglobin 31 pg (25-35) Mean Corpuscular Hemoglobin Concent 35 g/dL (31-37) Red Cell Distribution Width 13.3 % (11.5-14.5) Platelet Count 189 x10^3/uL (140-400) Neutrophils (%) (Auto) 90 % (31-73) Lymphocytes (%) (Auto) 7 % (24-48) Monocytes (%) (Auto) 3 % (0-9) Eosinophils (%) (Auto) 0 % (0-3) Basophils (%) (Auto) 0 % (0-3) Neutrophils # (Auto) 5.0 x10^3uL (1.8-7.7) Lymphocytes # (Auto) 0.4 x10^3/uL (1.0-4.8) Monocytes # (Auto) 0.1 x10^3/uL (0.0-1.1) Eosinophils # (Auto) 0.0 x10^3/uL (0.0-0.7) Basophils # (Auto) 0.0 x10^3/uL (0.0-0.2) Segmented Neutrophils % 83 % (35-66) Band Neutrophils % 5 % (0-9) Lymphocytes % 9 % (24-48) Monocytes % 3 % (0-10) Platelet Estimate Adequate (ADEQUATE) Sodium Level 139 mmol/L (136-145) Potassium Level 3.8 mmol/L (3.5-5.1) Chloride Level 105 mmol/L (98-107) Carbon Dioxide Level 24 mmol/L (21-32) Anion Gap 10 (6-14) Blood Urea Nitrogen 8 mg/dL (7-20) Creatinine 0.5 mg/dL (0.6-1.0) Estimated GFR (Cockcroft-Gault) 135.3 BUN/Creatinine Ratio 16 (6-20) Glucose Level 131 mg/dL (70-99) Calcium Level 8.0 mg/dL (8.5-10.1) Total Bilirubin 1.0 mg/dL (0.2-1.0) Aspartate Amino Transf (AST/SGOT) 39 U/L (15-37) Alanine Aminotransferase (ALT/SGPT) 45 U/L (14-59) Alkaline Phosphatase 45 U/L (46-116) Total Protein 5.9 g/dL (6.4-8.2) Albumin 3.0 g/dL (3.4-5.0) Albumin/Globulin Ratio 1.0 (1.0-1.7) Laboratory Tests Test 12/17/16 14:30 12/18/16 03:22 Sodium Level 140 mmol/L (136-145) 139 mmol/L (136-145) Potassium Level 3.7 mmol/L (3.5-5.1) 3.8 mmol/L (3.5-5.1) Chloride Level 104 mmol/L (98-107) 105 mmol/L (98-107) Carbon Dioxide Level 27 mmol/L (21-32) 24 mmol/L (21-32) Anion Gap 9 (6-14) 10 (6-14) Blood Urea Nitrogen 12 mg/dL (7-20) 8 mg/dL (7-20) Creatinine 0.8 mg/dL (0.6-1.0) 0.5 mg/dL (0.6-1.0) Estimated GFR (Cockcroft-Gault) 78.7 135.3 Glucose Level 99 mg/dL (70-99) 131 mg/dL (70-99) Lactic Acid Level 2.1 mmol/L (0.4-2.0) Calcium Level 8.5 mg/dL (8.5-10.1) 8.0 mg/dL (8.5-10.1) White Blood Count 5.5 x10^3/uL (4.0-11.0) Red Blood Count 3.77 x10^6/uL (3.50-5.40) Hemoglobin 11.7 g/dL (12.0-15.5) Hematocrit 33.1 % (36.0-47.0) Mean Corpuscular Volume 88 fL (79-100) Mean Corpuscular Hemoglobin 31 pg (25-35) Mean Corpuscular Hemoglobin Concent 35 g/dL (31-37) Red Cell Distribution Width 13.3 % (11.5-14.5) Platelet Count 189 x10^3/uL (140-400) Neutrophils (%) (Auto) 90 % (31-73) Lymphocytes (%) (Auto) 7 % (24-48) Monocytes (%) (Auto) 3 % (0-9) Eosinophils (%) (Auto) 0 % (0-3) Basophils (%) (Auto) 0 % (0-3) Neutrophils # (Auto) 5.0 x10^3uL (1.8-7.7) Lymphocytes # (Auto) 0.4 x10^3/uL (1.0-4.8) Monocytes # (Auto) 0.1 x10^3/uL (0.0-1.1) Eosinophils # (Auto) 0.0 x10^3/uL (0.0-0.7) Basophils # (Auto) 0.0 x10^3/uL (0.0-0.2) Segmented Neutrophils % 83 % (35-66) Band Neutrophils % 5 % (0-9) Lymphocytes % 9 % (24-48) Monocytes % 3 % (0-10) Platelet Estimate Adequate (ADEQUATE) BUN/Creatinine Ratio 16 (6-20) Total Bilirubin 1.0 mg/dL (0.2-1.0) Aspartate Amino Transf (AST/SGOT) 39 U/L (15-37) Alanine Aminotransferase (ALT/SGPT) 45 U/L (14-59) Alkaline Phosphatase 45 U/L (46-116) Total Protein 5.9 g/dL (6.4-8.2) Albumin 3.0 g/dL (3.4-5.0) Albumin/Globulin Ratio 1.0 (1.0-1.7) Medications Current Medications Sodium Chloride 1,000 ml @ 1,000 mls/hr 1X ONCE IV Last administered on 23:54; Start 12/16/16 at 23:45; Stop 12/17/16 at 00:44; Status DC Promethazine HCl (Phenergan Im) 25 mg 1X ONCE IM Last administered on 23:56; Start 12/16/16 at 23:45; Stop 12/16/16 at 23:46; Status DC Fentanyl Citrate (Fentanyl 2ml Vial) 50 mcg PRN Q15MIN PRN IV PAIN GREATER THAN 3/10 Last administered on 12/17/16 03:59; Start 12/16/16 at 23:45; Stop 05/26 at 15:11; Status DC Pantoprazole Sodium (Protonix Vial) 40 mg 1X ONCE IVP Last administered on 12/16 23:45; Start 12/16/16 at 23:45; Stop 12/16/16 at 23:46; Status DC Iohexol (Omnipaque 240 Mg/ml) 30 ml 1X ONCE PO Last administered on 12/17/16 01:34; Start 12/17/16 at 00:45; Stop 12/17/16 at 00:46; Status DC Iohexol (Omnipaque 300 Mg/ml) 75 ml 1X ONCE IV Last administered on 12/17/16 01:34; Start 12/17/16 at 00:45; Stop 12/17/16 at 00:46; Status DC Info (Do NOT chart on this entry -- for MONITORING) 1 each PRN DAILY PRN MC SEE COMMENTS; Start 12/17/16 at 00:45; Stop 12/19/16 at 00:44 Ondansetron HCl (Zofran) 4 mg 1X ONCE IV Last administered on 12/17/16 01:03 ; Start 12/17/16 at 01:00; Stop 12/17/16 at 01:01; Status DC Lidocaine HCl (Viscous Lidocaine) 15 ml 1X ONCE SWSW Last administered on 12/17 02:00; Start 12/17/16 at 02:15; Stop 12/17/16 at 03:45; Status DC Ondansetron HCl (Zofran) 4 mg PRN Q8HRS PRN IV NAUSEA/VOMITING Last administered on 12/17/16 04:59; Start 12/17/16 at 02:15; Stop 12/17/16 at 21:46 ; Status DC Fentanyl Citrate (Fentanyl 2ml Vial) 50 mcg PRN Q2HR PRN IV PAIN Last administered on 12/17/16 14:41; Start 12/17/16 at 02:15; Stop 12/17/16 at 15:11 ; Status DC Sodium Chloride 1,000 ml @ 125 mls/hr Q8H IV Last administered on 12/17/16 11 :25; Start 12/17/16 at 02:12; Stop 12/17/16 at 21:46; Status DC Hydromorphone HCl (Dilaudid) 1 mg 1X ONCE IV Last administered on 12/17/16 02 :33; Start 12/17/16 at 02:15; Stop 12/17/16 at 03:45; Status DC Ondansetron HCl (Zofran) 4 mg 1X ONCE IV Last administered on 12/17/16 02:30 ; Start 12/17/16 at 02:15; Stop 12/17/16 at 03:45; Status DC Lidocaine HCl (Glydo (Lidocaine) Jelly) 6 celio STK-MED ONCE .ROUTE ; Start at 02:22; Stop 12/17/16 at 02:23; Status DC Pantoprazole Sodium (Protonix Vial) 40 mg DAILYAC IVP Last administered on 12/18 09:42; Start 12/17/16 at 10:30 Metoclopramide HCl (Reglan) 10 mg PRN Q8HRS PRN IV NAUSEA/VOMITING; Start 12/17 at 12:30; Stop 12/17/16 at 13:49; Status DC Lorazepam (Ativan) 1 mg PRN Q4HRS PRN IV ANXIETY / AGITATION Last administered on 12/18/16 06:07; Start 12/17/16 at 15:15 Metoclopramide HCl (Reglan) 5 mg 1X ONCE IV Last administered on 12/17/16 15: 20; Start 12/17/16 at 15:15; Stop 12/17/16 at 15:16; Status DC Fentanyl Citrate (Fentanyl 2ml Vial) 25 mcg PRN Q2HR PRN IV PAIN Last administered on 12/17/16 18:58; Start 12/17/16 at 15:15; Stop 12/17/16 at 21:46 ; Status DC Cefoxitin Sodium 100 ml @ 200 mls/hr 1X PREOP PRN IV . Last administered on 20:40; Start 12/17/16 at 16:30; Stop 12/18/16 at 16:29 Ondansetron HCl (Zofran) 4 mg PRN Q6HRS PRN IV NAUSEA/VOMITING; Start 12/17/16 at 18:00; Stop 12/17/16 at 21:46; Status DC Fentanyl Citrate (Fentanyl 2ml Vial) 25 mcg PRN Q5MIN PRN IV MILD PAIN Last administered on 12/17/16 20:10; Start 12/17/16 at 18:00; Stop 12/17/16 at 21:46 ; Status DC Fentanyl Citrate (Fentanyl 2ml Vial) 50 mcg PRN Q5MIN PRN IV MODERATE PAIN; Start 12/17/16 at 18:00; Stop 12/17/16 at 21:46; Status DC Ringer's Solution 1,000 ml @ 30 mls/hr Q24H IV Last administered on 12/17/16 18:02; Start 12/17/16 at 17:46; Stop 12/17/16 at 21:47; Status DC Lidocaine HCl 2 ml PRN 1X PRN ID PRIOR TO IV START; Start 12/17/16 at 18:00; Stop 12/18/16 at 17:59 Midazolam HCl (Versed) 1 mg PREOP PRN PRN IV ANXIETY Last administered on 19:37; Start 12/17/16 at 18:45; Stop 12/18/16 at 02:07; Status DC Fentanyl Citrate (Fentanyl 2ml Vial) 50 mcg PREOP PRN IV PAIN Last administered on 12/17/16 19:43; Start 12/17/16 at 19:30; Stop 12/17/16 at 21:47 ; Status DC Dexamethasone Sodium Phosphate (Decadron) 20 mg STK-MED ONCE .ROUTE ; Start 05/26 at 20:11; Stop 12/17/16 at 20:12; Status DC Ondansetron HCl (Zofran) 4 mg STK-MED ONCE .ROUTE ; Start 12/17/16 at 20:11; Stop 12/17/16 at 20:12; Status DC Propofol 20 ml @ As Directed STK-MED ONCE IV ; Start 12/17/16 at 20:11; Stop 05/26 at 20:12; Status DC Lidocaine HCl (Lidocaine HCl 2% Abboject) 100 mg STK-MED ONCE .ROUTE ; Start 05/26 at 20:11; Stop 12/17/16 at 20:12; Status DC Midazolam HCl (Versed) 2 mg STK-MED ONCE .ROUTE ; Start 12/17/16 at 20:12; Stop 12/17/16 at 20:13; Status DC Fentanyl Citrate (Fentanyl 2ml Vial) 100 mcg STK-MED ONCE .ROUTE ; Start at 20:12; Stop 12/17/16 at 20:13; Status DC Rocuronium [place] (Zemuron) 100 mg STK-MED ONCE .ROUTE ; Start 12/17/16 at 20: 12; Stop 12/17/16 at 20:13; Status DC Bupivacaine HCl/ Epinephrine Bitart (Sensorcain-Mpf Epi 0.5%-1:633340) 30 ml STK -MED ONCE .ROUTE Last administered on 12/17/16 21:53; Start 12/17/16 at 20:19 ; Stop 12/17/16 at 20:20; Status DC Glycopyrrolate (Robinul) 1 mg STK-MED ONCE .ROUTE ; Start 12/17/16 at 21:22; Stop 12/17/16 at 21:23; Status DC Neostigmine Methylsulfate 5 mg STK-MED ONCE .ROUTE ; Start 12/17/16 at 21:22; Stop 12/17/16 at 21:23; Status DC Enoxaparin Sodium (Lovenox 40mg Syringe) 40 mg Q24H SQ Last administered on 09:42; Start 12/18/16 at 09:00 Sodium Chloride (Normal Saline Flush) 3 ml QSHIFT PRN IV AFTER MEDS AND BLOOD DRAWS; Start 12/17/16 at 21:30 Ringer's Solution 1,000 ml @ 100 mls/hr Q10H IV Last administered on 06:08; Start 12/17/16 at 21:30 Naloxone HCl (Narcan) 0.4 mg PRN Q2MIN PRN IV SEE INSTRUCTIONS; Start 12/17/16 at 21:30 Sodium Chloride 1,000 ml @ 25 mls/hr Q24H IV ; Start 12/17/16 at 21:30 Hydromorphone HCl 30 ml @ 0 mls/hr CONT PRN PRN IV PROTOCOL Last administered on 12/17/16 22:31; Start 12/17/16 at 21:30 Ondansetron HCl (Zofran) 4 mg PRN Q6HRS PRN IV NAUESA, 1ST CHOICE Last administered on 12/18/16 09:41; Start 12/17/16 at 21:30 Midazolam HCl (Versed) 2 mg STK-MED ONCE .ROUTE ; Start 12/17/16 at 21:46; Stop 12/17/16 at 21:47; Status DC Ondansetron HCl (Zofran) 4 mg PRN Q6HRS PRN IV NAUSEA/VOMITING; Start 12/17/16 at 22:15; Stop 12/18/16 at 02:07; Status DC Fentanyl Citrate (Fentanyl 2ml Vial) 25 mcg PRN Q5MIN PRN IV MILD PAIN; Start 12/17/16 at 22:15; Stop 12/18/16 at 02:07; Status DC Fentanyl Citrate (Fentanyl 2ml Vial) 50 mcg PRN Q5MIN PRN IV MODERATE PAIN Last administered on 12/17/16 22:00; Start 12/17/16 at 22:15; Stop 12/18/16 at 02:07; Status DC Prochlorperazine Edisylate (Compazine) 5 mg 1X ONCE IV ; Start 12/17/16 at 23: 00; Stop 12/17/16 at 23:01; Status DC Sevoflurane (Ultane) 30 ml STK-MED ONCE IH ; Start 12/17/16 at 22:10; Stop 12/18 at 02:06; Status DC Active Scripts Active Hydroxyzine Hcl 25 Mg Tablet 25 Mg PO QID PRN 7 Days Protonix (Pantoprazole Sodium) 40 Mg Tablet 40 Mg PO DAILYAC [Erythromycin Base] 250 MG Tablet 250 Mg PO BID Reported Zolpidem Tartrate 10 Mg Tablet 1 Tab PO QHS Cyclobenzaprine Hcl 10 Mg Tablet 1 Tab PO QHS Zofran (Ondansetron Hcl) 4 Mg Tablet 1 Tab PO Q6HRS Pantoprazole Sodium 40 Mg Tablet.dr 1 Tab PO HS Clonazepam 1 Mg Tablet 1 Tab PO QHS Clonidine Hcl 0.1 Mg Tablet 1 Tab PO QHS Sertraline Hcl 50 Mg Tablet 50 Mg PO HS Adderall Xr 20 Mg Capsule (Dextroamphetamine/Amphetamine) 20 Mg Cap.er.24h 1 Cap PO DAILY Lorazepam 1 Mg Tablet 1 Tab PO TID Reglan (Metoclopramide Hcl) 10 Mg Tablet 10 Mg PO PRN PRN Zofran (Ondansetron Hcl) 4 Mg Tablet 1 Tab PO Q6HRS PRN Ambien (Zolpidem Tartrate) 5 Mg Tablet 1 Tab PO QHS PRN Vitals/I & O Vital Sign - Last 24 Hours 12/17/16 12/17/16 12/17/16 12/17/16 14:41 14:59 18:58 19:00 Temp 99.0 99.3 99.0 99.3 Pulse 80 97 Resp 16 20 20 B/P (MAP) 126/64 (84) 131/72 Pulse Ox 95 97 99 97 O2 Delivery Room Air Room Air Room Air Room Air 12/17/16 12/17/16 12/17/16 12/17/16 19:38 19:43 20:10 21:36 Temp 99.2 99.2 Pulse 84 Resp 20 20 20 14 B/P (MAP) 131/61 Pulse Ox 97 97 99 95 O2 Delivery Room Air Room Air Room Air Simple Mask O2 Flow Rate 10 12/17/16 12/17/16 12/17/16 12/17/16 21:38 21:50 21:51 22:00 Pulse 82 Resp 24 16 18 B/P (MAP) 118/59 Pulse Ox 100 98 95 O2 Delivery Simple Mask Room Air Simple Mask Room Air O2 Flow Rate 10.0 10 12/17/16 12/17/16 12/17/16 12/17/16 22:06 22:21 22:31 22:36 Temp 98.9 98.9 Pulse 82 92 80 Resp 18 18 16 12 B/P (MAP) 110/53 93/50 99/51 Pulse Ox 94 94 93 92 O2 Delivery Room Air Room Air Room Air Room Air 12/17/16 12/17/16 12/18/16 12/18/16 23:00 23:15 02:49 07:00 Temp 98.2 97.9 98.1 98.2 97.9 98.1 Pulse 79 71 67 Resp 18 B/P (MAP) 103/57 (72) 108/54 (72) 91/47 (62) Pulse Ox 94 94 94 96 O2 Delivery Room Air Room Air Room Air Room Air 12/18/16 11:00 Temp 98.1 98.1 Pulse 68 Resp 18 B/P (MAP) 120/61 (80) Pulse Ox 95 O2 Delivery Room Air Intake and Output 12/17/16 12/17/16 12/18/16 15:00 23:00 07:00 Intake Total 1300 ml 20 ml Output Total 400 ml 1300 ml Balance 900 ml -1280 ml KAISER HAN III DO December 18, 2016 11:49
--- NOTE | 2016-12-18 12:07 | PDOC ---
SURGICAL PROGRESS NOTE Subjective Pt reports feeling much better Vital Signs Vital Signs Date Time Temp Pulse Resp B/P (MAP) Pulse Ox O2 Delivery O2 Flow Rate FiO2 12/18/16 11:00 98.1 68 18 120/61 (80) 95 Room Air 98.1 12/17/16 21:51 10 I&O Intake and Output 12/18/16 07:00 Intake Total 1320 ml Output Total 1700 ml Balance -380 ml Intake Oral 20 ml IV Total 1300 ml Output Urine Total 1350 ml Gastric Drainage Total 300 ml Drainage Total 50 ml # Voids 1 # Bowel Movements 1 General: Alert, Oriented X3, Cooperative, No acute distress Abdomen: Soft, No tenderness Labs Laboratory Tests Test 12/16/16 22:40 12/16/16 23:13 12/16/16 23:19 12/17/16 14:30 Bedside Urine HCG, Qualitative Hcg negative (Negative) Urine Collection Type Unknown Urine Color Yellow Urine Clarity Clear Urine pH 6.0 Urine Specific [place] >=1.030 Urine Protein Negative mg/dL (NEG-TRACE) Urine Glucose (UA) Negative mg/dL (NEG) Urine Ketones (Stick) Negative mg/dL (NEG) Urine Blood Large (NEG) Urine Nitrite Negative (NEG) Urine Bilirubin Negative (NEG) Urine Urobilinogen Dipstick 0.2 mg/dL (0.2 mg/dL) Urine Leukocyte Esterase Small (NEG) Urine RBC 11-20 /HPF (0-2) Urine WBC 5-10 /HPF (0-4) Urine Squamous Epithelial Cells Mod /LPF Urine Amorphous Sediment Present /HPF Urine Bacteria Few /HPF (0-FEW) Urine Mucus Mod /LPF Urine Yeast Present /HPF White Blood Count 10.8 x10^3/uL (4.0-11.0) Red Blood Count 4.68 x10^6/uL (3.50-5.40) Hemoglobin 14.3 g/dL (12.0-15.5) Hematocrit 40.8 % (36.0-47.0) Mean Corpuscular Volume 87 fL (79-100) Mean Corpuscular Hemoglobin 31 pg (25-35) Mean Corpuscular Hemoglobin Concent 35 g/dL (31-37) Red Cell Distribution Width 13.3 % (11.5-14.5) Platelet Count 241 x10^3/uL (140-400) Neutrophils (%) (Auto) 85 % (31-73) Lymphocytes (%) (Auto) 9 % (24-48) Monocytes (%) (Auto) 6 % (0-9) Eosinophils (%) (Auto) 0 % (0-3) Basophils (%) (Auto) 0 % (0-3) Neutrophils # (Auto) 9.2 x10^3uL (1.8-7.7) Lymphocytes # (Auto) 1.0 x10^3/uL (1.0-4.8) Monocytes # (Auto) 0.6 x10^3/uL (0.0-1.1) Eosinophils # (Auto) 0.0 x10^3/uL (0.0-0.7) Basophils # (Auto) 0.0 x10^3/uL (0.0-0.2) Segmented Neutrophils % 80 % (35-66) Lymphocytes % 14 % (24-48) Monocytes % 6 % (0-10) Platelet Estimate Adequate (ADEQUATE) Sodium Level 139 mmol/L (136-145) 140 mmol/L (136-145) Potassium Level 4.0 mmol/L (3.5-5.1) 3.7 mmol/L (3.5-5.1) Chloride Level 103 mmol/L (98-107) 104 mmol/L (98-107) Carbon Dioxide Level 26 mmol/L (21-32) 27 mmol/L (21-32) Anion Gap 10 (6-14) 9 (6-14) Blood Urea Nitrogen 17 mg/dL (7-20) 12 mg/dL (7-20) Creatinine 0.8 mg/dL (0.6-1.0) 0.8 mg/dL (0.6-1.0) Estimated GFR (Cockcroft-Gault) 78.7 78.7 BUN/Creatinine Ratio 21 (6-20) Glucose Level 129 mg/dL (70-99) 99 mg/dL (70-99) Calcium Level 8.6 mg/dL (8.5-10.1) 8.5 mg/dL (8.5-10.1) Total Bilirubin 0.3 mg/dL (0.2-1.0) Aspartate Amino Transf (AST/SGOT) 28 U/L (15-37) Alanine Aminotransferase (ALT/SGPT) 38 U/L (14-59) Alkaline Phosphatase 52 U/L (46-116) Total Protein 7.5 g/dL (6.4-8.2) Albumin 4.0 g/dL (3.4-5.0) Albumin/Globulin Ratio 1.1 (1.0-1.7) Amylase Level 30 U/L (25-115) Lipase 235 U/L (73-393) Lactic Acid Level 2.1 mmol/L (0.4-2.0) Test 12/18/16 03:22 White Blood Count 5.5 x10^3/uL (4.0-11.0) Red Blood Count 3.77 x10^6/uL (3.50-5.40) Hemoglobin 11.7 g/dL (12.0-15.5) Hematocrit 33.1 % (36.0-47.0) Mean Corpuscular Volume 88 fL (79-100) Mean Corpuscular Hemoglobin 31 pg (25-35) Mean Corpuscular Hemoglobin Concent 35 g/dL (31-37) Red Cell Distribution Width 13.3 % (11.5-14.5) Platelet Count 189 x10^3/uL (140-400) Neutrophils (%) (Auto) 90 % (31-73) Lymphocytes (%) (Auto) 7 % (24-48) Monocytes (%) (Auto) 3 % (0-9) Eosinophils (%) (Auto) 0 % (0-3) Basophils (%) (Auto) 0 % (0-3) Neutrophils # (Auto) 5.0 x10^3uL (1.8-7.7) Lymphocytes # (Auto) 0.4 x10^3/uL (1.0-4.8) Monocytes # (Auto) 0.1 x10^3/uL (0.0-1.1) Eosinophils # (Auto) 0.0 x10^3/uL (0.0-0.7) Basophils # (Auto) 0.0 x10^3/uL (0.0-0.2) Segmented Neutrophils % 83 % (35-66) Band Neutrophils % 5 % (0-9) Lymphocytes % 9 % (24-48) Monocytes % 3 % (0-10) Platelet Estimate Adequate (ADEQUATE) Sodium Level 139 mmol/L (136-145) Potassium Level 3.8 mmol/L (3.5-5.1) Chloride Level 105 mmol/L (98-107) Carbon Dioxide Level 24 mmol/L (21-32) Anion Gap 10 (6-14) Blood Urea Nitrogen 8 mg/dL (7-20) Creatinine 0.5 mg/dL (0.6-1.0) Estimated GFR (Cockcroft-Gault) 135.3 BUN/Creatinine Ratio 16 (6-20) Glucose Level 131 mg/dL (70-99) Calcium Level 8.0 mg/dL (8.5-10.1) Total Bilirubin 1.0 mg/dL (0.2-1.0) Aspartate Amino Transf (AST/SGOT) 39 U/L (15-37) Alanine Aminotransferase (ALT/SGPT) 45 U/L (14-59) Alkaline Phosphatase 45 U/L (46-116) Total Protein 5.9 g/dL (6.4-8.2) Albumin 3.0 g/dL (3.4-5.0) Albumin/Globulin Ratio 1.0 (1.0-1.7) Laboratory Tests Test 12/17/16 14:30 12/18/16 03:22 Sodium Level 140 mmol/L (136-145) 139 mmol/L (136-145) Potassium Level 3.7 mmol/L (3.5-5.1) 3.8 mmol/L (3.5-5.1) Chloride Level 104 mmol/L (98-107) 105 mmol/L (98-107) Carbon Dioxide Level 27 mmol/L (21-32) 24 mmol/L (21-32) Anion Gap 9 (6-14) 10 (6-14) Blood Urea Nitrogen 12 mg/dL (7-20) 8 mg/dL (7-20) Creatinine 0.8 mg/dL (0.6-1.0) 0.5 mg/dL (0.6-1.0) Estimated GFR (Cockcroft-Gault) 78.7 135.3 Glucose Level 99 mg/dL (70-99) 131 mg/dL (70-99) Lactic Acid Level 2.1 mmol/L (0.4-2.0) Calcium Level 8.5 mg/dL (8.5-10.1) 8.0 mg/dL (8.5-10.1) White Blood Count 5.5 x10^3/uL (4.0-11.0) Red Blood Count 3.77 x10^6/uL (3.50-5.40) Hemoglobin 11.7 g/dL (12.0-15.5) Hematocrit 33.1 % (36.0-47.0) Mean Corpuscular Volume 88 fL (79-100) Mean Corpuscular Hemoglobin 31 pg (25-35) Mean Corpuscular Hemoglobin Concent 35 g/dL (31-37) Red Cell Distribution Width 13.3 % (11.5-14.5) Platelet Count 189 x10^3/uL (140-400) Neutrophils (%) (Auto) 90 % (31-73) Lymphocytes (%) (Auto) 7 % (24-48) Monocytes (%) (Auto) 3 % (0-9) Eosinophils (%) (Auto) 0 % (0-3) Basophils (%) (Auto) 0 % (0-3) Neutrophils # (Auto) 5.0 x10^3uL (1.8-7.7) Lymphocytes # (Auto) 0.4 x10^3/uL (1.0-4.8) Monocytes # (Auto) 0.1 x10^3/uL (0.0-1.1) Eosinophils # (Auto) 0.0 x10^3/uL (0.0-0.7) Basophils # (Auto) 0.0 x10^3/uL (0.0-0.2) Segmented Neutrophils % 83 % (35-66) Band Neutrophils % 5 % (0-9) Lymphocytes % 9 % (24-48) Monocytes % 3 % (0-10) Platelet Estimate Adequate (ADEQUATE) BUN/Creatinine Ratio 16 (6-20) Total Bilirubin 1.0 mg/dL (0.2-1.0) Aspartate Amino Transf (AST/SGOT) 39 U/L (15-37) Alanine Aminotransferase (ALT/SGPT) 45 U/L (14-59) Alkaline Phosphatase 45 U/L (46-116) Total Protein 5.9 g/dL (6.4-8.2) Albumin 3.0 g/dL (3.4-5.0) Albumin/Globulin Ratio 1.0 (1.0-1.7) Problem List Problems Medical Problems: (1) Gastroparesis Status: Acute (2) Small bowel obstruction Status: Acute Assessment/Plan d/c ngt clears Problems: DARIN GARCIA MD December 18, 2016 12:07
--- NOTE | 2016-12-18 12:18 | PDOC ---
Subjective: Subjective: Feels better. Passing gas. No vomiting. Pain improved. Throat sore. Objective: Vital Signs: Vital Signs Date Time Temp Pulse Resp B/P (MAP) Pulse Ox O2 Delivery O2 Flow Rate FiO2 12/18/16 11:00 98.1 68 18 120/61 (80) 95 Room Air 98.1 12/17/16 21:51 10 Labs: Laboratory Tests Test 12/17/16 14:30 12/18/16 03:22 Sodium Level 140 mmol/L 139 mmol/L Potassium Level 3.7 mmol/L 3.8 mmol/L Chloride Level 104 mmol/L 105 mmol/L Carbon Dioxide Level 27 mmol/L 24 mmol/L Anion Gap 9 10 Blood Urea Nitrogen 12 mg/dL 8 mg/dL Creatinine 0.8 mg/dL 0.5 mg/dL Estimated GFR (Cockcroft-Gault) 78.7 135.3 Glucose Level 99 mg/dL 131 mg/dL Lactic Acid Level 2.1 mmol/L Calcium Level 8.5 mg/dL 8.0 mg/dL White Blood Count 5.5 x10^3/uL Red Blood Count 3.77 x10^6/uL Hemoglobin 11.7 g/dL Hematocrit 33.1 % Mean Corpuscular Volume 88 fL Mean Corpuscular Hemoglobin 31 pg Mean Corpuscular Hemoglobin Concent 35 g/dL Red Cell Distribution Width 13.3 % Platelet Count 189 x10^3/uL Neutrophils (%) (Auto) 90 % Lymphocytes (%) (Auto) 7 % Monocytes (%) (Auto) 3 % Eosinophils (%) (Auto) 0 % Basophils (%) (Auto) 0 % Neutrophils # (Auto) 5.0 x10^3uL Lymphocytes # (Auto) 0.4 x10^3/uL Monocytes # (Auto) 0.1 x10^3/uL Eosinophils # (Auto) 0.0 x10^3/uL Basophils # (Auto) 0.0 x10^3/uL Segmented Neutrophils % 83 % Band Neutrophils % 5 % Lymphocytes % 9 % Monocytes % 3 % Platelet Estimate Adequate BUN/Creatinine Ratio 16 Total Bilirubin 1.0 mg/dL Aspartate Amino Transf (AST/SGOT) 39 U/L Alanine Aminotransferase (ALT/SGPT) 45 U/L Alkaline Phosphatase 45 U/L Total Protein 5.9 g/dL Albumin 3.0 g/dL Albumin/Globulin Ratio 1.0 Imaging: Op findings: distended bowel, viable, RIH, garret luke beth adhesions, serosang ascites PE: GEN: NAD, in recliner LUNGS: clear anteriorly HEART: RRR ABD: still has NG - canister with trace contents, less tender NEURO/PSYCH: A & O 3 A/P: SBO -s/p expl lap /10, findings as above, distended/viable bowel Gastroparesis, GERD -on Zofran and Reglan at home -GES, EGD, colonoscopy 2013 -- Note plans to DC NG, try clears. BRITTANY [place] December 18, 2016 12:18
[2016-12-18 15:00] VITALS: BP 119/60
--- NOTE | 2016-12-18 15:32 | RAD ---
Exam performed: Acute abdominal series. History: Small bowel obstruction. Date of service: 12/18/16. Comparison: Single view abdomen from 12/17/16. Findings: Single AP upright portable view of the chest demonstrates mild atelectasis in the right midlung. There is also minimal atelectasis left lung base. Supine and upright views of the abdomen demonstrates continued mild gaseous distention of the small bowel loops in the central abdomen which appears improved since yesterday's study. The feeding tube has been removed. There is scattered stool throughout the colon. No abnormal calcification. Previous cholecystectomy. Impression: 1. Right midlung and left basilar atelectasis 2. Improving mild gaseous distention of the small bowel loops in the central abdomen with interval removal of the feeding tube.
[2016-12-18 19:00] VITALS: BP 121/70
[2016-12-18] MEDS ORDERED: CALCIUM CARBONATE 500 MG TAB.CHEW PO PRN (21:15)
[2016-12-18] MEDS ORDERED: METOCLOPRAMIDE 10 MG TABLET. PO PRN (21:15)
[2016-12-18] MEDS ORDERED: PANTOPRAZOLE 40 MG TABLET.DR. PO SCH (21:30)
[2016-12-18] MEDS ORDERED: SERTRALINE 50 MG TABLET. PO SCH (21:30)
[2016-12-18] MEDS ORDERED: clonazePAM 1 MG TABLET PO SCH (21:30)
[2016-12-18] MEDS ORDERED: CYCLOBENZAPRINE 10 MG TABLET. PO SCH (21:30)
[2016-12-18] MEDS ORDERED: ZOLPIDEM 5 MG TABLET. PO SCH (21:30)
[2016-12-18] MEDS ORDERED: cloNIDine HCL 0.2 MG TABLET PO SCH (21:30)
[2016-12-18] MEDS ORDERED: ZOLPIDEM 5 MG TABLET. PO PRN (21:30)
[2016-12-18] MEDS ORDERED: ONDANSETRON ODT 4 MG TAB.RAPDIS. PO PRN (21:30)
[2016-12-18] MEDS: IV NORMAL SALINE 1000ML BAG 1,000 ML IV SCH (21:30)
[2016-12-18] MEDS: LORazepam 1 MG TABLET PO SCH (21:55)
[2016-12-18 23:00] VITALS: BP 82/55
[2016-12-19 03:00] VITALS: BP 79/38
[2016-12-19] MEDS: IV RINGERS,LACTATED 1000ML 1,000 ML IV SCH ×2 (03:45→13:30)
[2016-12-19 07:00] VITALS: BP 99/53
[2016-12-19] MEDS: LORazepam 1 MG TABLET PO SCH ×3 (08:18→18:23)
[2016-12-19] MEDS: ENOXAPARIN 40 MG/0.4 ML SYRINGE. SQ SCH (08:19)
[2016-12-19] MEDS ORDERED: AMPHETAMINE PO SCH (09:00)
[2016-12-19] MEDS ORDERED: DEXTROAMPHETAMINE PO SCH (09:00)
--- NOTE | 2016-12-19 10:04 | PDOC ---
Subjective: Subjective: Pain managed, tolerating clears. Says passed small loose stool yesterday. No vomiting, some nausea. Objective: Vital Signs: Vital Signs Date Time Temp Pulse Resp B/P (MAP) Pulse Ox O2 Delivery O2 Flow Rate FiO2 12/19/16 03:00 97.9 56 16 79/38 (52) 94 97.9 12/18/16 15:00 Room Air Imaging: KUB 12/18/16 Impression: 1. Right midlung and left basilar atelectasis 2. Improving mild gaseous distention of the small bowel loops in the central abdomen with interval removal of the feeding tube. PE: GEN: NAD, was asleep LUNGS: clear anteriorly HEART: RRR ABD: mostly RUQ tenderness - seems actually over rib, BS+ NEURO/PSYCH: A & O 3 A/P: SBO - resolved -s/p expl lap 12/17 Gastroparesis, GERD -on Zofran and Reglan at home -GES, EGD, colonoscopy 2013 -- Improving. Diet per surgery. BRITTANY [place] December 19, 2016 10:04
[2016-12-19 11:00] VITALS: BP 96/57
--- NOTE | 2016-12-19 11:16 | PDOC ---
PROGRESS NOTES Chief Complaint Chief Complaint Abdominal Pain SBO History of Present Illness History of Present Illness Pt lying in bed comfortably and reports she is feeling better She is tolerating liquid diet and reports a small BM and a lot of flatulence Pt states she would like to advance diet and be d/c before the weekend Vitals Vitals Vital Signs Date Time Temp Pulse Resp B/P (MAP) Pulse Ox O2 Delivery O2 Flow Rate FiO2 12/19/16 07:00 97.6 59 20 99/53 (68) 97 Room Air 97.6 Physical Exam General: Alert, Oriented X3, Cooperative, No acute distress Heart: Regular rate, No murmurs Lungs: Clear, Other (no wheezing) Abdomen: Normal bowel sounds, Soft, No tenderness Extremities: No clubbing, No edema Skin: No rashes, No significant lesion, Other (Surgical incisions are dry, intact, no erythema or streaking) Review of Systems Review of Systems Denies Chest pain Denies SOA Assessment and Plan Assessmemt and Plan Problems Medical Problems: (1) Gastroparesis Status: Acute (2) Small bowel obstruction Status: Acute ASSESSMENT: 1. Small-bowel obstruction - s/p laparoscopic exploratory surgery post op day # 2 - improved 2. Intractable nausea and vomiting and abdominal discomfort due to the above - improved and tolerating liquid diet 3. Dehydration - resolved 4. Severe anxiety. 5. Depression. 6. Fibromyalgia. PLAN: Start regular diet as tolerated D/C HOCKEY SCOUT pump and start Lortab 5 mg PO QD Continue IV hydration Zofran q. 4 hours as needed for nausea and vomiting. Ativan for anxiety Pain control w/ lortab Protonix for GI prophylaxis Lovenox for DVT prophylaxis F/u w/ Dr. Dewitt for possible EGD/Colonoscopy Disp: if tolerating regular diet then d/c today Problems: Comment Review of Relevant I have reviewed the following items sarita (where applicable) has been applied. Labs Laboratory Tests Test 12/17/16 14:30 12/18/16 03:22 Sodium Level 140 mmol/L (136-145) 139 mmol/L (136-145) Potassium Level 3.7 mmol/L (3.5-5.1) 3.8 mmol/L (3.5-5.1) Chloride Level 104 mmol/L (98-107) 105 mmol/L (98-107) Carbon Dioxide Level 27 mmol/L (21-32) 24 mmol/L (21-32) Anion Gap 9 (6-14) 10 (6-14) Blood Urea Nitrogen 12 mg/dL (7-20) 8 mg/dL (7-20) Creatinine 0.8 mg/dL (0.6-1.0) 0.5 mg/dL (0.6-1.0) Estimated GFR (Cockcroft-Gault) 78.7 135.3 Glucose Level 99 mg/dL (70-99) 131 mg/dL (70-99) Lactic Acid Level 2.1 mmol/L (0.4-2.0) Calcium Level 8.5 mg/dL (8.5-10.1) 8.0 mg/dL (8.5-10.1) White Blood Count 5.5 x10^3/uL (4.0-11.0) Red Blood Count 3.77 x10^6/uL (3.50-5.40) Hemoglobin 11.7 g/dL (12.0-15.5) Hematocrit 33.1 % (36.0-47.0) Mean Corpuscular Volume 88 fL (79-100) Mean Corpuscular Hemoglobin 31 pg (25-35) Mean Corpuscular Hemoglobin Concent 35 g/dL (31-37) Red Cell Distribution Width 13.3 % (11.5-14.5) Platelet Count 189 x10^3/uL (140-400) Neutrophils (%) (Auto) 90 % (31-73) Lymphocytes (%) (Auto) 7 % (24-48) Monocytes (%) (Auto) 3 % (0-9) Eosinophils (%) (Auto) 0 % (0-3) Basophils (%) (Auto) 0 % (0-3) Neutrophils # (Auto) 5.0 x10^3uL (1.8-7.7) Lymphocytes # (Auto) 0.4 x10^3/uL (1.0-4.8) Monocytes # (Auto) 0.1 x10^3/uL (0.0-1.1) Eosinophils # (Auto) 0.0 x10^3/uL (0.0-0.7) Basophils # (Auto) 0.0 x10^3/uL (0.0-0.2) Segmented Neutrophils % 83 % (35-66) Band Neutrophils % 5 % (0-9) Lymphocytes % 9 % (24-48) Monocytes % 3 % (0-10) Platelet Estimate Adequate (ADEQUATE) BUN/Creatinine Ratio 16 (6-20) Total Bilirubin 1.0 mg/dL (0.2-1.0) Aspartate Amino Transf (AST/SGOT) 39 U/L (15-37) Alanine Aminotransferase (ALT/SGPT) 45 U/L (14-59) Alkaline Phosphatase 45 U/L (46-116) Total Protein 5.9 g/dL (6.4-8.2) Albumin 3.0 g/dL (3.4-5.0) Albumin/Globulin Ratio 1.0 (1.0-1.7) Microbiology 12/17/16 Gram Stain - Final, Complete Medications Current Medications Sodium Chloride 1,000 ml @ 1,000 mls/hr 1X ONCE IV Last administered on 23:54; Start 12/16/16 at 23:45; Stop 12/17/16 at 00:44; Status DC Promethazine HCl (Phenergan Im) 25 mg 1X ONCE IM Last administered on 23:56; Start 12/16/16 at 23:45; Stop 12/16/16 at 23:46; Status DC Fentanyl Citrate (Fentanyl 2ml Vial) 50 mcg PRN Q15MIN PRN IV PAIN GREATER THAN 3/10 Last administered on 12/17/16 03:59; Start 12/16/16 at 23:45; Stop 05/26 at 15:11; Status DC Pantoprazole Sodium (Protonix Vial) 40 mg 1X ONCE IVP Last administered on 12/16 23:45; Start 12/16/16 at 23:45; Stop 12/16/16 at 23:46; Status DC Iohexol (Omnipaque 240 Mg/ml) 30 ml 1X ONCE PO Last administered on 12/17/16 01:34; Start 12/17/16 at 00:45; Stop 12/17/16 at 00:46; Status DC Iohexol (Omnipaque 300 Mg/ml) 75 ml 1X ONCE IV Last administered on 12/17/16 01:34; Start 12/17/16 at 00:45; Stop 12/17/16 at 00:46; Status DC Info (Do NOT chart on this entry -- for MONITORING) 1 each PRN DAILY PRN MC SEE COMMENTS; Start 12/17/16 at 00:45; Stop 12/19/16 at 00:44; Status DC Ondansetron HCl (Zofran) 4 mg 1X ONCE IV Last administered on 12/17/16 01:03 ; Start 12/17/16 at 01:00; Stop 12/17/16 at 01:01; Status DC Lidocaine HCl (Viscous Lidocaine) 15 ml 1X ONCE SWSW Last administered on 12/17 02:00; Start 12/17/16 at 02:15; Stop 12/17/16 at 03:45; Status DC Ondansetron HCl (Zofran) 4 mg PRN Q8HRS PRN IV NAUSEA/VOMITING Last administered on 12/17/16 04:59; Start 12/17/16 at 02:15; Stop 12/17/16 at 21:46 ; Status DC Fentanyl Citrate (Fentanyl 2ml Vial) 50 mcg PRN Q2HR PRN IV PAIN Last administered on 12/17/16 14:41; Start 12/17/16 at 02:15; Stop 12/17/16 at 15:11 ; Status DC Sodium Chloride 1,000 ml @ 125 mls/hr Q8H IV Last administered on 12/17/16 11 :25; Start 12/17/16 at 02:12; Stop 12/17/16 at 21:46; Status DC Hydromorphone HCl (Dilaudid) 1 mg 1X ONCE IV Last administered on 12/17/16 02 :33; Start 12/17/16 at 02:15; Stop 12/17/16 at 03:45; Status DC Ondansetron HCl (Zofran) 4 mg 1X ONCE IV Last administered on 12/17/16 02:30 ; Start 12/17/16 at 02:15; Stop 12/17/16 at 03:45; Status DC Lidocaine HCl (Glydo (Lidocaine) Jelly) 6 celio STK-MED ONCE .ROUTE ; Start at 02:22; Stop 12/17/16 at 02:23; Status DC Pantoprazole Sodium (Protonix Vial) 40 mg DAILYAC IVP Last administered on 12/18 09:42; Start 12/17/16 at 10:30; Stop 12/18/16 at 21:20; Status DC Metoclopramide HCl (Reglan) 10 mg PRN Q8HRS PRN IV NAUSEA/VOMITING; Start 12/17 at 12:30; Stop 12/17/16 at 13:49; Status DC Lorazepam (Ativan) 1 mg PRN Q4HRS PRN IV ANXIETY / AGITATION Last administered on 12/18/16 13:20; Start 12/17/16 at 15:15 Metoclopramide HCl (Reglan) 5 mg 1X ONCE IV Last administered on 12/17/16 15: 20; Start 12/17/16 at 15:15; Stop 12/17/16 at 15:16; Status DC Fentanyl Citrate (Fentanyl 2ml Vial) 25 mcg PRN Q2HR PRN IV PAIN Last administered on 12/17/16 18:58; Start 12/17/16 at 15:15; Stop 12/17/16 at 21:46 ; Status DC Cefoxitin Sodium 100 ml @ 200 mls/hr 1X PREOP PRN IV . Last administered on 20:40; Start 12/17/16 at 16:30; Stop 12/18/16 at 16:29; Status DC Ondansetron HCl (Zofran) 4 mg PRN Q6HRS PRN IV NAUSEA/VOMITING; Start 12/17/16 at 18:00; Stop 12/17/16 at 21:46; Status DC Fentanyl Citrate (Fentanyl 2ml Vial) 25 mcg PRN Q5MIN PRN IV MILD PAIN Last administered on 12/17/16 20:10; Start 12/17/16 at 18:00; Stop 12/17/16 at 21:46 ; Status DC Fentanyl Citrate (Fentanyl 2ml Vial) 50 mcg PRN Q5MIN PRN IV MODERATE PAIN; Start 12/17/16 at 18:00; Stop 12/17/16 at 21:46; Status DC Ringer's Solution 1,000 ml @ 30 mls/hr Q24H IV Last administered on 12/17/16 18:02; Start 12/17/16 at 17:46; Stop 12/17/16 at 21:47; Status DC Lidocaine HCl 2 ml PRN 1X PRN ID PRIOR TO IV START; Start 12/17/16 at 18:00; Stop 12/18/16 at 17:59; Status DC Midazolam HCl (Versed) 1 mg PREOP PRN PRN IV ANXIETY Last administered on 19:37; Start 12/17/16 at 18:45; Stop 12/18/16 at 02:07; Status DC Fentanyl Citrate (Fentanyl 2ml Vial) 50 mcg PREOP PRN IV PAIN Last administered on 12/17/16 19:43; Start 12/17/16 at 19:30; Stop 12/17/16 at 21:47 ; Status DC Dexamethasone Sodium Phosphate (Decadron) 20 mg STK-MED ONCE .ROUTE ; Start 05/26 at 20:11; Stop 12/17/16 at 20:12; Status DC Ondansetron HCl (Zofran) 4 mg STK-MED ONCE .ROUTE ; Start 12/17/16 at 20:11; Stop 12/17/16 at 20:12; Status DC Propofol 20 ml @ As Directed STK-MED ONCE IV ; Start 12/17/16 at 20:11; Stop 05/26 at 20:12; Status DC Lidocaine HCl (Lidocaine HCl 2% Abboject) 100 mg STK-MED ONCE .ROUTE ; Start 05/26 at 20:11; Stop 12/17/16 at 20:12; Status DC Midazolam HCl (Versed) 2 mg STK-MED ONCE .ROUTE ; Start 12/17/16 at 20:12; Stop 12/17/16 at 20:13; Status DC Fentanyl Citrate (Fentanyl 2ml Vial) 100 mcg STK-MED ONCE .ROUTE ; Start at 20:12; Stop 12/17/16 at 20:13; Status DC Rocuronium [place] (Zemuron) 100 mg STK-MED ONCE .ROUTE ; Start 12/17/16 at 20: 12; Stop 12/17/16 at 20:13; Status DC Bupivacaine HCl/ Epinephrine Bitart (Sensorcain-Mpf Epi 0.5%-[id number]) 30 ml STK -MED ONCE .ROUTE Last administered on 12/17/16 21:53; Start 12/17/16 at 20:19 ; Stop 12/17/16 at 20:20; Status DC Glycopyrrolate (Robinul) 1 mg STK-MED ONCE .ROUTE ; Start 12/17/16 at 21:22; Stop 12/17/16 at 21:23; Status DC Neostigmine Methylsulfate 5 mg STK-MED ONCE .ROUTE ; Start 12/17/16 at 21:22; Stop 12/17/16 at 21:23; Status DC Enoxaparin Sodium (Lovenox 40mg Syringe) 40 mg Q24H SQ Last administered on 08:19; Start 12/18/16 at 09:00 Sodium Chloride (Normal Saline Flush) 3 ml QSHIFT PRN IV AFTER MEDS AND BLOOD DRAWS; Start 12/17/16 at 21:30 Ringer's Solution 1,000 ml @ 100 mls/hr Q10H IV Last administered on 03:45; Start 12/17/16 at 21:30 Naloxone HCl (Narcan) 0.4 mg PRN Q2MIN PRN IV SEE INSTRUCTIONS; Start 12/17/16 at 21:30 Sodium Chloride 1,000 ml @ 25 mls/hr Q24H IV ; Start 12/17/16 at 21:30 Hydromorphone HCl 30 ml @ 0 mls/hr CONT PRN PRN IV PROTOCOL Last administered on 12/17/16 22:31; Start 12/17/16 at 21:30; Stop 12/19/16 at 12:00 Ondansetron HCl (Zofran) 4 mg PRN Q6HRS PRN IV NAUESA, 1ST CHOICE Last administered on 12/18/16 18:18; Start 12/17/16 at 21:30 Midazolam HCl (Versed) 2 mg STK-MED ONCE .ROUTE ; Start 12/17/16 at 21:46; Stop 12/17/16 at 21:47; Status DC Ondansetron HCl (Zofran) 4 mg PRN Q6HRS PRN IV NAUSEA/VOMITING; Start 12/17/16 at 22:15; Stop 12/18/16 at 02:07; Status DC Fentanyl Citrate (Fentanyl 2ml Vial) 25 mcg PRN Q5MIN PRN IV MILD PAIN; Start 12/17/16 at 22:15; Stop 12/18/16 at 02:07; Status DC Fentanyl Citrate (Fentanyl 2ml Vial) 50 mcg PRN Q5MIN PRN IV MODERATE PAIN Last administered on 12/17/16 22:00; Start 12/17/16 at 22:15; Stop 12/18/16 at 02:07; Status DC Prochlorperazine Edisylate (Compazine) 5 mg 1X ONCE IV ; Start 12/17/16 at 23: 00; Stop 12/17/16 at 23:01; Status DC Sevoflurane (Ultane) 30 ml STK-MED ONCE IH ; Start 12/17/16 at 22:10; Stop 12/18 at 02:06; Status DC Clonazepam (KlonoPIN) 1 mg QHS PO Last administered on 12/18/16 21:52; Start 12/18/16 at 21:30 Clonidine HCl (Catapres) 0.2 mg QHS PO Last administered on 12/18/16 21:55; Start 12/18/16 at 21:30 Cyclobenzaprine HCl (Flexeril) 10 mg QHS PO Last administered on 12/18/16 21: 52; Start 12/18/16 at 21:30 Lorazepam (Ativan) 1 mg TID PO Last administered on 12/19/16 08:18; Start 06/26 at 21:30 Metoclopramide HCl (Reglan) 10 mg PRN Q6HRS PRN PO NAUSEA; Start 12/18/16 at 21 :15 Pantoprazole Sodium (Protonix) 40 mg HS PO ; Start 12/18/16 at 21:30 Sertraline HCl (Zoloft) 50 mg HS PO Last administered on 12/18/16 21:54; Start 12/18/16 at 21:30 Non-Formulary Medication 1 cap DAILY PO ; Start 12/19/16 at 09:00; Status UNV Ondansetron HCl (Zofran Odt) 4 mg PRN Q6HRS PRN PO NAUSEA/VOMITING Last administered on 12/18/16 22:18; Start 12/18/16 at 21:30 Zolpidem Tartrate (Ambien) 5 mg QHS PO Last administered on 12/18/16 21:53; Start 12/18/16 at 21:30 Calcium Carbonate/ Glycine (Tums) 500 mg PRN AFTMEALHC PRN PO INDIGESTION Last administered on 12/18/16 21:56; Start 12/18/16 at 21:15 Zolpidem Tartrate (Ambien) 5 mg PRN QHS PRN PO INSOMNIA Last administered on 00:06; Start 12/18/16 at 21:30 Acetaminophen/ Hydrocodone Bitart (Lortab 5/325) 1 tab PRN Q4HRS PRN PO PAIN; Start 12/19/16 at 12:00; Status UNV Active Scripts Active Reported Zolpidem Tartrate 10 Mg Tablet 1 Tab PO QHS Cyclobenzaprine Hcl 10 Mg Tablet 1 Tab PO QHS Zofran (Ondansetron Hcl) 4 Mg Tablet 1 Tab PO Q6HRS Pantoprazole Sodium 40 Mg Tablet.dr 1 Tab PO HS Clonazepam 1 Mg Tablet 1 Tab PO QHS Clonidine Hcl 0.1 Mg Tablet 2 Tab PO QHS Sertraline Hcl 50 Mg Tablet 50 Mg PO HS Adderall Xr 20 Mg Capsule (Dextroamphetamine/Amphetamine) 20 Mg Cap.er.24h 1 Cap PO DAILY Lorazepam 1 Mg Tablet 1 Tab PO TID Reglan (Metoclopramide Hcl) 10 Mg Tablet 10 Mg PO PRN PRN Vitals/I & O Vital Sign - Last 24 Hours 12/18/16 12/18/16 12/18/16 12/18/16 15:00 19:00 21:55 23:00 Temp 98.1 97.9 97.9 98.1 97.9 97.9 Pulse 70 73 70 64 Resp 18 18 16 B/P (MAP) 119/60 (79) 121/70 (87) 119/60 82/55 (64) Pulse Ox 95 95 97 O2 Delivery Room Air 12/19/16 12/19/16 03:00 07:00 Temp 97.9 97.6 97.9 97.6 Pulse 56 59 Resp 16 20 B/P (MAP) 79/38 (52) 99/53 (68) Pulse Ox 94 97 O2 Delivery Room Air Intake and Output 12/18/16 12/18/16 12/19/16 15:00 23:00 07:00 Intake Total 1030 ml 450 ml Balance 1030 ml 450 ml CASTLE,NIAL K III DO December 19, 2016 11:16
[2016-12-19] MEDS: ONDANSETRON PF 4 MG/2 ML VIAL. IV PRN (12:02)
--- NOTE | 2016-12-19 12:51 | PDOC ---
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 Vital Signs Vital Signs Date Time Temp Pulse Resp B/P (MAP) Pulse Ox O2 Delivery O2 Flow Rate FiO2 12/19/16 11:00 98.4 67 22 96/57 (70) 98 Room Air 98.4 I&O Intake and Output 12/19/16 07:00 Intake Total 1480 ml Balance 1480 ml Intake Oral 1480 ml # Voids 8 General: Alert, Oriented X3, Cooperative, No acute distress Abdomen: Soft, Other (lap site dressings dry ) Labs Laboratory Tests Test 12/17/16 14:30 12/18/16 03:22 Sodium Level 140 mmol/L (136-145) 139 mmol/L (136-145) Potassium Level 3.7 mmol/L (3.5-5.1) 3.8 mmol/L (3.5-5.1) Chloride Level 104 mmol/L (98-107) 105 mmol/L (98-107) Carbon Dioxide Level 27 mmol/L (21-32) 24 mmol/L (21-32) Anion Gap 9 (6-14) 10 (6-14) Blood Urea Nitrogen 12 mg/dL (7-20) 8 mg/dL (7-20) Creatinine 0.8 mg/dL (0.6-1.0) 0.5 mg/dL (0.6-1.0) Estimated GFR (Cockcroft-Gault) 78.7 135.3 Glucose Level 99 mg/dL (70-99) 131 mg/dL (70-99) Lactic Acid Level 2.1 mmol/L (0.4-2.0) Calcium Level 8.5 mg/dL (8.5-10.1) 8.0 mg/dL (8.5-10.1) White Blood Count 5.5 x10^3/uL (4.0-11.0) Red Blood Count 3.77 x10^6/uL (3.50-5.40) Hemoglobin 11.7 g/dL (12.0-15.5) Hematocrit 33.1 % (36.0-47.0) Mean Corpuscular Volume 88 fL (79-100) Mean Corpuscular Hemoglobin 31 pg (25-35) Mean Corpuscular Hemoglobin Concent 35 g/dL (31-37) Red Cell Distribution Width 13.3 % (11.5-14.5) Platelet Count 189 x10^3/uL (140-400) Neutrophils (%) (Auto) 90 % (31-73) Lymphocytes (%) (Auto) 7 % (24-48) Monocytes (%) (Auto) 3 % (0-9) Eosinophils (%) (Auto) 0 % (0-3) Basophils (%) (Auto) 0 % (0-3) Neutrophils # (Auto) 5.0 x10^3uL (1.8-7.7) Lymphocytes # (Auto) 0.4 x10^3/uL (1.0-4.8) Monocytes # (Auto) 0.1 x10^3/uL (0.0-1.1) Eosinophils # (Auto) 0.0 x10^3/uL (0.0-0.7) Basophils # (Auto) 0.0 x10^3/uL (0.0-0.2) Segmented Neutrophils % 83 % (35-66) Band Neutrophils % 5 % (0-9) Lymphocytes % 9 % (24-48) Monocytes % 3 % (0-10) Platelet Estimate Adequate (ADEQUATE) BUN/Creatinine Ratio 16 (6-20) Total Bilirubin 1.0 mg/dL (0.2-1.0) Aspartate Amino Transf (AST/SGOT) 39 U/L (15-37) Alanine Aminotransferase (ALT/SGPT) 45 U/L (14-59) Alkaline Phosphatase 45 U/L (46-116) Total Protein 5.9 g/dL (6.4-8.2) Albumin 3.0 g/dL (3.4-5.0) Albumin/Globulin Ratio 1.0 (1.0-1.7) Problem List Problems Medical Problems: (1) Gastroparesis Status: Acute (2) Small bowel obstruction Status: Acute Assessment/Plan s/p xlap advance diet, home when pain managed on oral meds and tolerating regular diet possible this PM or in AM Problems: JOSEE JEAN APRN December 19, 2016 12:51
[2016-12-19] MEDS: HYDROcodone/APAP 5/325MG 1 TAB TABLET PO PRN ×2 (12:56→16:59)
[2016-12-19 15:00] VITALS: BP 94/56
== END 2016-12-19 19:24 | disposition home or self-care (01) | DRG 357 ==
LOC: ER 22:48 → 5 SOUTH 12-17 00:11
PROVIDERS: ADMIT Internal Medicine Hematology & Oncology; ATTEND Internal Medicine Hematology & Oncology
PROC: 0W9J4ZX Drainage of Pelvic Cavity, Percutaneous Endoscopic Approach, Diagnostic (ICD-10-PCS; 2016-12-17)
PROC: 0D9770Z Drainage of Stomach, Pylorus with Drainage Device, Via Natural or Artificial Opening (ICD-10-PCS; 2016-12-17)
PROC: 0WJP4ZZ Inspection of Gastrointestinal Tract, Percutaneous Endoscopic Approach (ICD-10-PCS; principal; 2016-12-17 19:00)
DX: K56.60 Unspecified intestinal obstruction (principal); I42.9 Cardiomyopathy, unspecified; J98.11 Atelectasis; R18.8 Other ascites; R16.1 Splenomegaly, not elsewhere classified; F32.9 Major depressive disorder, single episode, unspecified; F41.9 Anxiety disorder, unspecified; K21.9 Gastro-esophageal reflux disease without esophagitis; K31.84 Gastroparesis; M79.7 Fibromyalgia; Z90.49 Acquired absence of other specified parts of digestive tract; G43.909 Migraine, unspecified, not intractable, without status migrainosus; Z90.89 Acquired absence of other organs; E86.0 Dehydration; K58.9 Irritable bowel syndrome, unspecified; Z85.43 Personal history of malignant neoplasm of ovary; Z86.718 Personal history of other venous thrombosis and embolism; Z88.5 Allergy status to narcotic agent
CPT/HCPCS: 36415; 74000; 74022; 74177; 80048; 80053; 81001; 81025; 82150; 83605; 83690; 85007; 85027; 87071; 87075; 87205; 88112; 88305; 96361; 96372; 96374; 96375; C9113; J0694; J1100; J1170; J1650; J2060; J2250; J2405; J2550; J2704; J2710; J2765; J3010; J3490; J7030; J7120; J8597; Q0162; Q9966; Q9967; 99285-25

== ENCOUNTER 2017-03-20 17:03 | Emergency (ER) | payer OTHER ==
[~2017-03-20] VITALS: Ht 162.6 cm; Wt 69.9 kg
[~2017-03-20 17:03] MED LIST changes: +CLON0.1T PO; +CLON1TAB3 PO; +CYCL10TA2 PO; +DEXT20CA7 PO; +LORA1TAB PO; +METO10TA81 PO; +PANT40TA5 PO; +SERT50TA8 PO; +ZOLP10TA4 PO
[2017-03-20 17:34] LABS: BILIRUBIN,URINE NEGATIVE (NEG); GLUCOSE,URINE NEGATIVE (NEG); NITRITE,URINE NEGATIVE (NEG); PH,URINE 5.5; PROTEIN,URINE NEGATIVE (NEG-TRACE); UROBILINOGEN,URINE 0.2 mg/dL (0.2 mg/dL)
[2017-03-20 17:47] LABS: BACTERIA,URINE FEW /HPF (0-FEW); RBC,URINE 0 /HPF (0-2); SQUAMOUS EPITHELIAL CELL,UR MOD /LPF
[2017-03-20 18:35] LABS: BASO % 0 % (0-3); EOS % 0 % (0-3); HEMATOCRIT 39.3 % (36.0-47.0); HEMOGLOBIN 13.1 g/dL (12.0-15.5); LYMPH # 1.1 x10^3/uL (1.0-4.8); LYMPH % 31 % (24-48); MEAN CORPUSCULAR HEMOGLOBIN 31 pg (25-35); MEAN CORPUSCULAR HGB CONC 34 g/dL (31-37); MEAN CORPUSCULAR VOLUME 92 fL (79-100); MONO % 9 % (0-9); NEUT % 60 % (31-73); PLATELET COUNT 232 x10^3/uL (140-400); RED BLOOD COUNT 4.27 x10^6/uL (3.50-5.40); RED CELL DISTRIBUTION WIDTH 12.5 % (11.5-14.5); WHITE BLOOD COUNT 3.6 x10^3/uL (4.0-11.0)
[2017-03-20] MEDS ORDERED: KETOROLAC 15 MG/ML VIAL. IV ONE (18:45)
[2017-03-20] MEDS ORDERED: IV NORMAL SALINE 1000ML BAG 1,000 ML IV ONE (18:45)
[2017-03-20] MEDS ORDERED: ONDANSETRON PF 4 MG/2 ML VIAL. IV ONE (18:45)
[2017-03-20 18:51] LABS: CALCIUM 8.4 mg/dL (8.5-10.1); CREATININE 0.8 mg/dL (0.6-1.0); GFR 78.3
[2017-03-20 18:55] LABS: ALBUMIN 4.1 g/dL (3.4-5.0); ALBUMIN/GLOBULIN RATIO 1.6 (1.0-1.7); TOTAL BILIRUBIN 0.2 mg/dL (0.2-1.0); TOTAL PROTEIN 6.7 g/dL (6.4-8.2)
[2017-03-20] MEDS ORDERED: HALOPERIDOL LACTATE 5 MG/ML VIAL. IVP ONE (20:00)
[2017-03-20 21:01] VITALS: BP 95/50
--- NOTE | 2017-03-20 21:36 | ED.ADGEN ---
Past Medical History Past Medical History: DVT, Fibromyalgia, GERD, Migraines, Ovarian Cyst, Pneumonia, Other Additional Past Medical Histor: PITUITARY ADNOMA, POST CARDIOMYOPATHY, GASTROPARESIS Past Surgical History: Appendectomy, Cholecystectomy, Tonsillectomy, Other Additional Past Surgical Histo: ADNOIDECTOMY, Alcohol Use: Rarely Drug Use: None Adult General Chief Complaint Chief Complaint: ABDOMINAL PAIN HPI HPI Patient is a 42 year old woman, with a history of pituitary adenoma, fibromyalgia, gastroparesis, being followed by Dr. Gaines of GI, who presents to the emergency department with a complaint of several days of nausea, vomiting , cramping abdominal pain and constipation. Is passing flatus. Patient states that she was previously taking Reglan, however it was not working, she was told by her GI physician to discontinue. Patient had surgery performed last month for a small bowel obstruction. She states that she has had no surgeries, including appendectomy, cholecystectomy, and an extensive workup of her gastroparesis without a clear etiology. She denies any recent travel, any fevers or chills, any weakness, numbness, tingling, shortness breath, chest pain or other complaints. She has not taken anything for pain at home. Review of Systems Review of Systems Constitutional: Denies fever or chills. [] Eyes: Denies change in visual acuity. [] HENT: Denies nasal congestion or sore throat. [] Respiratory: Denies cough or shortness of breath. [] Cardiovascular: Denies chest pain or edema. [] GI: Abdominal pain, nausea, vomiting, no bloody stools diarrhea, is positive for some constipation. : Denies dysuria. [] Musculoskeletal: Denies back pain or joint pain. [] Integument: Denies rash. [] Neurologic: Denies headache, focal weakness or sensory changes. [] Endocrine: Denies polyuria or polydipsia. [] Lymphatic: Denies swollen glands. [] Psychiatric: Denies depression or anxiety. [] Current Medications Current Medications Current Medications Medications (Trade) Dose Ordered Sig/Olya Start Time Stop Time Status Last Admin Dose Admin Haloperidol Lactate (Haldol) 5 mg 1X ONCE 03/20/17 20:00 03/20/17 20:01 DC 03/20/17 20:01 5 MG Ketorolac Tromethamine (Toradol) 10 mg 1X ONCE 03/20/17 18:45 8/11/17 18:46 DC 03/20/17 18:39 10 MG Ondansetron HCl (Zofran) 4 mg 1X ONCE 03/20/17 18:45 03/20/17 18:46 DC 03/20/17 18:39 4 MG Sodium Chloride 1,000 ml @ 1,000 mls/hr 1X ONCE 03/20/17 18:45 03/20/17 19:44 DC 03/20/17 18:38 1,000 MLS/HR Allergies Allergies Allergies Coded Allergies Type Severity Reaction Last Updated Verified morphine Adverse Reaction Intermediate SEVERE ITCHING 12/17/16 Yes Physical Exam Physical Exam Constitutional: Well developed, well nourished, no acute distress, non-toxic appearance. [] HENT: Normocephalic, atraumatic, bilateral external ears normal, oropharynx moist, no oral exudates, nose normal. [] Eyes: PERRLA, EOMI, conjunctiva normal, no discharge. [] Neck: Normal range of motion, no tenderness, supple, no stridor. [] Cardiovascular:Heart rate regular rhythm, no murmur, S1, S2, rubs or gallops. [] Lungs & Thorax: Bilateral breath sounds clear to auscultation, no wheezing, rhonchi, rales. No chest or crepitus or tenderness. [] Abdomen: Bowel sounds normal, soft, mild tenderness palpation in the epigastric region no rebound, rigidity, no guarding, no masses, no pulsatile masses. [] Skin: Warm, dry, no erythema, no rash. [] Back: No tenderness, no CVA tenderness. [] Extremities: No tenderness, no cyanosis, no clubbing, ROM intact, no edema. [] Neurologic: Alert and oriented X 3, normal motor function, normal sensory function, no focal deficits noted. [] Psychologic: Affect normal, judgement normal, mood normal. [] Current Patient Data Vital Signs Vital Signs Date Time Temp Pulse Resp B/P (MAP) Pulse Ox O2 Delivery O2 Flow Rate FiO2 03/20/17 21:01 54 22 95/50 (65) 96 Room Air 03/20/17 17:10 98.4 98.4 Lab Values Laboratory Tests Test 03/20/17 16:34 03/20/17 17:18 03/20/17 17:42 POC Urine HCG, Qualitative Hcg negative (Negative) Urine Collection Type Unknown Urine Color Yellow Urine Clarity Clear Urine pH 5.5 Urine Specific [place] >=1.030 Urine Protein Negative mg/dL (NEG-TRACE) Urine Glucose (UA) Negative mg/dL (NEG) Urine Ketones (Stick) Negative mg/dL (NEG) Urine Blood Negative (NEG) Urine Nitrite Negative (NEG) Urine Bilirubin Negative (NEG) Urine Urobilinogen Dipstick 0.2 mg/dL (0.2 mg/dL) Urine Leukocyte Esterase Trace (NEG) Urine RBC 0 /HPF (0-2) Urine WBC 1-4 /HPF (0-4) Urine Squamous Epithelial Cells Mod /LPF Urine Bacteria Few /HPF (0-FEW) Urine Mucus Mod /LPF White Blood Count 3.6 x10^3/uL (4.0-11.0) L Red Blood Count 4.27 x10^6/uL (3.50-5.40) Hemoglobin 13.1 g/dL (12.0-15.5) Hematocrit 39.3 % (36.0-47.0) Mean Corpuscular Volume 92 fL (79-100) Mean Corpuscular Hemoglobin 31 pg (25-35) Mean Corpuscular Hemoglobin Concent 34 g/dL (31-37) Red Cell Distribution Width 12.5 % (11.5-14.5) Platelet Count 232 x10^3/uL (140-400) Neutrophils (%) (Auto) 60 % (31-73) Lymphocytes (%) (Auto) 31 % (24-48) Monocytes (%) (Auto) 9 % (0-9) Eosinophils (%) (Auto) 0 % (0-3) Basophils (%) (Auto) 0 % (0-3) Neutrophils # (Auto) 2.2 x10^3uL (1.8-7.7) Lymphocytes # (Auto) 1.1 x10^3/uL (1.0-4.8) Monocytes # (Auto) 0.3 x10^3/uL (0.0-1.1) Eosinophils # (Auto) 0.0 x10^3/uL (0.0-0.7) Basophils # (Auto) 0.0 x10^3/uL (0.0-0.2) Sodium Level 147 mmol/L (136-145) H Potassium Level 4.0 mmol/L (3.5-5.1) Chloride Level 108 mmol/L (98-107) H Carbon Dioxide Level 30 mmol/L (21-32) Anion Gap 9 (6-14) Blood Urea Nitrogen 11 mg/dL (7-20) Creatinine 0.8 mg/dL (0.6-1.0) Estimated GFR (Cockcroft-Gault) 78.3 BUN/Creatinine Ratio 14 (6-20) Glucose Level 101 mg/dL (70-99) H Calcium Level 8.4 mg/dL (8.5-10.1) L Total Bilirubin 0.2 mg/dL (0.2-1.0) Aspartate Amino Transferase (AST) 13 U/L (15-37) L Alanine Aminotransferase (ALT) 21 U/L (14-59) Alkaline Phosphatase 55 U/L (46-116) Total Protein 6.7 g/dL (6.4-8.2) Albumin 4.1 g/dL (3.4-5.0) Albumin/Globulin Ratio 1.6 (1.0-1.7) Lipase 164 U/L (73-393) Laboratory Tests 03/20/17 17:42 Laboratory Tests 03/20/17 17:42 EKG EKG Not indicated. [] Radiology/Procedures Radiology/Procedures Acute abdominal series: 3 view: Patient with stool and bowel gas throughout, no evidence of free air, air-fluid levels, or obstruction, cardiac silhouette is within normal limits, no cardiac or pulmonary abnormality is identified. No bony abnormality is. As interpreted by me. [] Course & Med Decision Making Course & Med Decision Making Pertinent Labs and Imaging studies reviewed. (See chart for details) Patient well-appearing, with no emesis in the ED, vital signs within normal limits. Laboratory studies and acute abdominal series obtained, no evidence of acutely concerning findings or obstruction, as stated patient has a benign examination. Patient is feeling better after receiving Haldol, and other medications in the ED, did discuss use of Reglan, other medications as previously prescribed by her GI primary care providers, patient states that she would consider using his medications, discussed the patient that I do not have any additional medications or better remedies to recommend at this time. Patient voices understanding and agreement, states that she will follow-up with her GI physician on Thursday as needed, will return to the ED if any new or concerning symptoms develop. Patient discharged home with in stable condition, with plan and precautions as stated above. Dragon Disclaimer Dragon Disclaimer This electronic medical record was generated, in whole or in part, using a voice recognition dictation system. Departure Impression: Primary Impression: Gastroparesis Disposition: HOME, SELF-CARE Condition: IMPROVED KUNAL MONTANO DO Mar 20, 2017 21:36
--- NOTE | 2017-03-21 09:29 | RAD ---
Acute abdominal series to include a PA chest radiograph 03/20/2017 Clinical History: Right lower quadrant abdominal pain for 5 days. A PA digital radiograph of the chest was obtained. Supine and erect AP digital radiographs of the abdomen/pelvis were obtained. Comparison study is dated 12/18/2016. The cardiac and mediastinal silhouettes are within normal limits in size and configuration. No pulmonary infiltrate is seen. No pleural effusion or pneumothorax is noted. Surgical clips are seen within the right upper quadrant of the abdomen consistent with cholecystectomy. The abdominal bowel gas pattern is nonobstructive. There is no evidence of free air. No radiopaque calculus is seen. The osseous structures are grossly intact. Impression: Negative study.
== END 2017-03-20 21:17 | disposition home or self-care (01) ==
LOC: ER 17:03
DX: K31.84 Gastroparesis (principal); M79.7 Fibromyalgia; K21.9 Gastro-esophageal reflux disease without esophagitis; G43.909 Migraine, unspecified, not intractable, without status migrainosus; I42.9 Cardiomyopathy, unspecified; Z87.01 Personal history of pneumonia (recurrent); Z90.49 Acquired absence of other specified parts of digestive tract; Z88.5 Allergy status to narcotic agent; Z86.718 Personal history of other venous thrombosis and embolism
CPT/HCPCS: 36415; 74022; 80053; 81001; 81025; 83690; 85025; 96361; 96374; 96375; 99285; J1630; J1885; J2405; J7030